=== PATIENT | female | born 1985 | race Caucasian/White ===

== ENCOUNTER 2020-01-18 08:23 | Emergency (ER) | payer OTHER, SELFPAY ==
[2020-01-18 08:36] VITALS: BP 103/67; PULSE 87; RESP 16; TEMP 36.6; O2SAT 99
--- NOTE | 2020-01-18 08:45 | ED.DENTAL ---
HPI - Dental/Oral General Chief complaint: Dental/Oral Stated complaint: left side of face swollen Time Seen by Provider: 01/18/20 08:45 Source: patient and RN notes reviewed History of Present Illness HPI Narrative: Patient is a 34-year-old female who presents the urgent care with complaints of a swollen left cheek. Patient states that she felt a little tightness last night and woke up with the extreme swelling this morning. Patient states that she has taken Tylenol and ibuprofen and also used an ice pack without much relief. Currently denies of any dental pain but does have a broken upper left tooth which she did recently. Denies of any fever, nausea, vomiting. No other acute complaints. Denies any recent injury or change in medications. No acute distress noted. Patient aware of the plan of care. Some parts of this dictation were generated by voice recognition software and may contain typographical and/or grammatical inaccuracies. Related Data Allergies Allergy/AdvReac Type Severity Reaction Status Date / Time No Known Allergies Allergy Verified 01/18/20 08:40 Review of Systems Review of Systems: Narrative: CONSTITUTIONAL: Denies fever, chills, or sweats. EYES: Denies visual changes, redness, or discharge. ENT: Denies rhinorrhea, congestion, sore throat, or otalgia. Reports of left-sided facial swelling CARDIOVASCULAR: Denies chest pain, palpitations, or edema. RESPIRATORY: Denies cough or dyspnea. GASTROINTESTINAL: Denies abdominal pain, nausea, vomiting, or diarrhea. GENITOURINARY: Denies dysuria or hematuria. SKIN: Denies rash or itching. MUSCULOSKELETAL: Denies back pain, joint pain, or myalgia. NEUROLOGIC: Denies headache, numbness, or weakness. All other systems reviewed are negative, except as documented in HPI. PMFSH Comments At the time of my signature, I reviewed and agree with the nursing past medical, surgical, social, and family history. There is no relevant family history pertinent to the patient complaint. Exam Narrative: Exam Narrative: GENERAL: This is a well-nourished, well-developed patient, in no apparent distress. HEAD: normocephalic, atraumatic. EYES: PERRL. Sclera clear/white. Vision is grossly intact. EARS: External ears normal NOSE: External nose normal with no obvious nasal discharge, nares without redness, no rhinorrhea. THROAT: Mucous membranes moist, posterior pharynx clear. NECK: Neck supple, non-tender without lymphadenopathy; mild to moderate left-sided facial swelling with warmth and density noted to the upper left cheek; normal parotid gland SKIN: warm, intact with no suspicious lesions or rash, good texture and turgor. NEURO: awake, alert, and oriented to person, place and time. There were no obvious focal neurologic abnormalities. EXTREMITIES: No clubbing, cyanosis, or edema. Course Vital Signs Vital signs: Vital Signs Temperature 98 F 01/18/20 08:36 Pulse Rate 87 01/18/20 08:36 Respiratory Rate 16 01/18/20 08:36 Blood Pressure 103/67 01/18/20 08:36 Pulse Oximetry 99 01/18/20 08:36 Temperature 98 F 01/18/20 08:36 Pulse Rate 87 01/18/20 08:36 Respiratory Rate 16 01/18/20 08:36 Blood Pressure 103/67 01/18/20 08:36 Pulse Oximetry 99 01/18/20 08:36 Reviewed MDM - Dental/Oral MDM Narrative Medical decision making narrative: Advised the patient to complete oral antibiotic regimen as prescribed. Make sure to eat and drink with the medication. Continue to use ice on and off intermittently for 20-minute intervals. Use Benadryl twice a day as needed. Complete steroid regimen as prescribed. If you develop any increase in symptoms associated with increased swelling, nausea, vomiting, fever, difficulty swallowing?go directly to the emergency room. Follow-up with your PCP within 2 to 5 days or for worsening symptoms or failure to improve. Differential Diagnosis Differential diagnosis: Likely gingival abscess, dental caries, toothache, dental abscess and
== END 2020-01-18 08:55 | disposition home or self-care (01) ==
PROVIDERS: Emergency Provider Nurse Practitioner Family
DX: R22.0 Localized swelling, mass and lump, head (principal)
CPT/HCPCS: 99213; G0463

== ENCOUNTER 2023-06-02 12:59 | Inpatient (IN) | payer OTHER, SELFPAY ==
[2023-06-02] VITALS (8 sets, daily range): BP systolic 120–139; BP diastolic 77–88; PULSE 75–89; RESP 14–22; TEMP 36.4–36.6; O2SAT 95–100; BMI 36.6
--- NOTE | ~2023-06-02 | CT_ITS ---
Clinical Indication: Metastatic disease CT Scan of the Chest, Abdomen, and Pelvis with Contrast: Technique: Contiguous sections were acquired throughout the chest, abdomen, and pelvis after intraven ous administration of 100 cc of Omnipaque 350. Dose reduction technique was used on this scan by rhoda youing automated exposure control and iterative reconstruction technique. The dose-length product (DL P) was 730.32 mGy-cm. Findings: There is no evidence of any significant mediastinal, hilar or axillary lymphadenopathy. The mediastin al soft tissues appear normal. Aberrant right subclavian artery incidentally noted. There is no evidence of pleural or pericardial effusion. The lungs are clear. No pulmonary nodules or infiltrates are noted. The liver, spleen, pancreas, gallbladder, adrenals and kidneys are within normal limits. No evidence of aortic aneurysm. No lymphadenopathy. No bowel obstruction or bowel wall thickening. There is no evidence to suggest acute appendicitis. Urinary bladder is unremarkable. No adnexal mass evident. No ascites. Impression: No significant abnormalities seen. No evidence for metastatic disease. Reviewed, dictated and finalized at [facility]. CH HISTORY TEACHER Impression: No significant abnormalities seen. No evidence for metastatic disease.
--- NOTE | ~2023-06-02 | XR_ITS ---
EXAMINATION: XR chest 1V portable DATE: 06/03/2023 17:28 INDICATION: Chest pain. TECHNIQUE: A single frontal view of the chest was obtained. COMPARISON: Chest CT 06/03/2023 FINDINGS: There is no pneumonia, pleural effusion, or pneumothorax. The heart size is normal. IMPRESSION: 1. No acute cardiopulmonary disease. Reviewed, dictated and finalized at location E. LE MECHANIC
--- NOTE | ~2023-06-02 | MR_ITS ---
EXAMINATION: MR brain/brain stem wo/w con DATE: 06/02/2023 18:55 INDICATION: Seizure. TECHNIQUE: Magnetic resonance imaging (MRI) of the brain and brainstem was performed without and with 20 mL MultiHance intravenous contrast. COMPARISON: Head CT 06/02/2023 FINDINGS: There is no acute ischemic infarct or intracranial hemorrhage. The hippocampi are normal an d symmetric. There is a focus of contrast enhancement in the right periventricular white matter with surrounding increased T2-weighted signal intensity. There is a focus of contrast enhancement in the p osterior left frontal lobe with surrounding increased T2-weighted signal intensity. There is a focus of contrast enhancement in the left cerebellum. There is a small focus of increased T2-weighted signa l intensity in the left parietal deep white matter. The ventricles are normal in size. There is mild mucosal thickening in the paranasal sinuses. The orbits are normal. There is a small left mastoid eff usion. IMPRESSION: 1. Three enhancing brain lesions. The differential diagnosis includes metastatic disease, infection, multiple sclerosis, and subacute infarcts. Reviewed, dictated and finalized at location E. ETING REPORTING ANALYST IMPRESSION: 1. Three enhancing brain lesions. The differential diagnosis includes metastati c disease, infection, multiple sclerosis, and subacute infarcts.
--- NOTE | ~2023-06-02 | CT_ITS ---
EXAMINATION: CT chest abdomen pelvis w con DATE: 06/03/2023 18:39 INDICATION: New onset abdominal pain. TECHNIQUE: Computed tomography (CT) of the chest, abdomen, and pelvis was performed with 100 mL Omnip aque 350 intravenous contrast. Automated exposure control and iterative reconstruction technique were employed. The dose-length product was 1648.85 mGy-cm. COMPARISON: CT at 1:30 PM FINDINGS: CHEST CT: There are a few nodules in the inferior lungs measuring up to 4 mm, likely benign. No pleural effusio n. There is an aberrant right subclavian artery. The heart size is normal. No pericardial effusion. T here is mild thoracic spondylosis. ABDOMEN/PELVIS CT: The liver, gallbladder, spleen, pancreas, adrenal glands, and right kidney are normal. There are cyst s in left kidney measuring up to 9 mm. There are no dilated loops of bowel. The appendix is normal. T here are no pathologically enlarged lymph nodes. There is no free intraperitoneal fluid. There is mil d lumbar spondylosis. IMPRESSION: 1. No etiology for the patient's symptoms. Reviewed, dictated and finalized at location E. ING MANAGER
--- NOTE | ~2023-06-02 | XR_ITS ---
EXAMINATION: XR lumbar puncture diagnostic DATE: 06/03/2023 14:40 INDICATION: Demyelinating disease versus meningitis/encephalitis TECHNIQUE: The procedure including the risks and benefits was discussed with the patient. Risks discu ssed included spinal headache, cerebrospinal fluid leak, bleeding, and infection. The patient underst ood the risks and agreed to proceed. A timeout was performed to verify the patient's name, date of , and procedure to be performed. The skin overlying the L3-L4 level was prepped and draped in usual sterile fashion. Subcutaneous 1% lidocaine was used for local anesthesia. A 5 inch 22 gauge s anum needle was advanced under fluoroscopic guidance. The needle was removed and the entry site was cleaned and dressed. There were no immediate complications. A total of 2 fluoroscopic image(s) and a single crosstable radiograph were obtained. The amount of fluoroscopy time used during this procedur e was 0.8 minutes. Were no immediate complications and the patient was returned to the floor in uncha nged condition. Total DAP was 16.631 mGycm^2 FINDINGS: Real-time fluoroscopy demonstrates the needle at the L4 level. Opening pressure was 26 cm w ater. (Normal range is variably defined as 6-20 cm water and up to 25 cm water in obese patients. Pre ssure >25 cm water is one of the modified Dandy criteria for idiopathic intracranial hypertension). 15 mL of clear, colorless fluid was collected in 4 tubes. IMPRESSION: 1. Successful fluoro-guided lumbar puncture with mildly elevated opening pressure of 26 cm water. Reviewed, dictated and finalized at location A. NER INTERN IMPRESSION: 1. Successful fluoro-guided lumbar puncture with mildly elevated opening pressu re of 26 cm water.
--- NOTE | ~2023-06-02 | MR_ITS ---
EXAMINATION: MR lumbar spine wo/w con DATE: 06/05/2023 12:01 INDICATION: Brain lesions. TECHNIQUE: Magnetic resonance imaging (MRI) of the lumbar spine was performed without and with 18 mL MultiHance intravenous contrast. COMPARISON: None FINDINGS: There is 6 degrees levocurvature of lumbar spine. Vertebral body heights and intervertebral disc heights are normal. The distal spinal cord signal intensity is normal. The conus medullaris is at T12-L1. There is a 12 mm cyst in left kidney. The following disc levels are specifically discussed : L1-L2: The disc does not extend beyond the endplate margin. There is mild bilateral facet joint osteo arthritis. There is no neural foraminal stenosis. There is no central canal stenosis. L2-L3: There is a left foraminal protrusion. There is mild bilateral facet joint osteoarthritis. Ther e is mild left neural foraminal stenosis. There is no central canal stenosis. L3-L4: The disc is mildly bulging. There is mild bilateral facet joint osteoarthritis. There is mild bilateral neural foraminal stenosis. There is no central canal stenosis. L4-L5: The disc does not extend beyond the endplate margin. There is mild bilateral facet joint osteo arthritis. There is no neural foraminal stenosis. There is no central canal stenosis. L5-S1: The disc does not extend beyond the endplate margin. There is moderate right and mild left fac et joint osteoarthritis. There is no neural foraminal stenosis. There is no central canal stenosis. IMPRESSION: 1. Mild lumbar spondylosis. Reviewed, dictated and finalized at location E. IMPRESSION: 1. Mild lumbar spondylosis.
--- NOTE | ~2023-06-02 | CT_ITS ---
EXAMINATION: CT brain wo con INDICATION: Seizure COMPARISON: None TECHNIQUE: Standard unenhanced head CT. The dose-length product (DLP) was 681.00 mGy-cm. The mA was a djusted according to patient size. Iterative reconstruction technique was employed. FINDINGS: No intracranial hemorrhage, acute infarction, or abnormal mass lesion. The ventricles are n ormal. No abnormal mass effect or midline shift. The pereira-white matter differentiation is normal. The basal cisterns are patent. The orbits are normal. The paranasal sinuses, mastoids and calvarium are normal. IMPRESSION: 1. No acute intracranial abnormality. Reviewed, dictated and finalized at location L. R AND OPAQUER
--- NOTE | ~2023-06-02 | CT_ITS ---
EXAMINATION: CTA brain carotid DATE: 06/03/2023 18:39 INDICATION: Brain lesions. Vasculitis. TECHNIQUE: Computed tomographic angiography (CTA) of the head was performed without and with 100 mL O mnipaque-350 intravenous contrast. CTA of the neck was performed with intravenous contrast. Automated exposure control and iterative reconstruction technique were employed. The dose-length product was 1 532.37 mGy-cm. Maximum intensity projection and volume rendered 3D-reconstructions were created by hema mckeon technologist on a separate workstation. COMPARISON: Brain MRI 06/02/2023 FINDINGS: HEAD CTA: There is no intracranial hemorrhage, acute infarction, or abnormal intracranial mass lesion . The ventricles are normal in size. The orbits are normal. There is mild mucosal thickening left max illary sinus. There is a trace left mastoid effusion. Extensive dental disease is noted. The vertebra l arteries are codominant. There is no significant stenosis of basilar artery or the posterior cerebr al arteries. The posterior communicating arteries are normal. There is no significant stenosis of int racranial internal carotid arteries or anterior or middle cerebral arteries. Anterior communicating a rtery is normal. There is no aneurysm. NECK CTA: There are no pathologically enlarged lymph nodes. There is an aberrant right subclavian art liv. There is no significant stenosis of the vertebral arteries. There is no visible plaque in the pa ranasal internal carotid arteries. There is 0% stenosis of the proximal right internal carotid arter y relative to normal distal artery lumen diameter (NASCET criteria). There is 0% stenosis of the prox imal left internal carotid artery relative to normal distal artery lumen diameter. There is mild cerv ical spondylosis. IMPRESSION: 1. Normal brain by CT. The lesions seen by MRI are not visible. 2. No aneurysm or significant intracranial arterial stenosis. 3. 0% stenosis of the proximal internal carotid arteries relative to normal distal artery lumen diame ters (NASCET criteria). 4. Extensive dental disease. Reviewed, dictated and finalized at location E. HEAD SALVAGE IMPRESSION: 1. Normal brain by CT. The lesions seen by MRI are not visible. 2. No aneurysm or significant intracranial arterial stenosis. 3. 0% stenosis of the proximal internal carotid arteries relative to normal dis caryn artery lumen diameters (NASCET criteria). 4. Extensive dental disease.
--- NOTE | ~2023-06-02 | MR_ITS ---
EXAMINATION: MR thoracic spine wo/w con DATE: 06/05/2023 12:01 INDICATION: Brain lesions. Seizure. TECHNIQUE: Magnetic resonance imaging (MRI) of the thoracic spine was performed without and with 18 m L MultiHance intravenous contrast. COMPARISON: None FINDINGS: Bone alignment is normal. Vertebral body heights and intervertebral disc heights are normal . There is multilevel mild to moderate facet joint osteoarthritis. On the right, there is mild neural foraminal stenosis at T7-T8 and T8-T9. On the left, there is mild neural foraminal stenosis at T4-T5 . There are lesions of increased T2-weighted signal intensity in the spinal cord at T2 and at T6-T7. The lesions cannot be evaluated for contrast enhancement due to artifacts on the postcontrast images. IMPRESSION: 1. Spinal cord lesions. The differential diagnosis includes multiple sclerosis and infection such as viral myelitis. Reviewed, dictated and finalized at location E.
--- NOTE | ~2023-06-02 | MR_ITS ---
EXAMINATION: MR cervical spine wo/w con DATE: 06/05/2023 12:00 INDICATION: Brain lesions. Seizures. TECHNIQUE: Magnetic resonance imaging (MRI) of the cervical spine was performed without and with 18 m L MultiHance intravenous contrast. COMPARISON: None FINDINGS: Bone alignment is normal. Vertebral body heights and intervertebral disc heights are normal . There are ill-defined areas of increased T2-weighted signal intensity in the spinal cord with some areas of faint contrast enhancement. The following disc levels are specifically discussed: C2-C3: The disc does not extend beyond the endplate margin. There is no uncovertebral joint osteoarth ritis. There is mild bilateral facet joint osteoarthritis. There is no neural foraminal stenosis. The re is no central canal stenosis. C3-C4: There is a right central protrusion. There is no uncovertebral joint osteoarthritis. There is mild bilateral facet joint osteoarthritis. There is no neural foraminal stenosis. There is no central canal stenosis. C4-C5: The disc does not extend beyond the endplate margin. There is mild bilateral uncovertebral mehul nt osteoarthritis. There is mild bilateral facet joint osteoarthritis. There is no neural foraminal s tenosis. There is no central canal stenosis. C5-C6: There is a central protrusion. There is mild bilateral uncovertebral joint osteoarthritis. The re is no facet joint osteoarthritis. There is no neural foraminal stenosis. There is mild central can al stenosis. C6-C7: There is a central protrusion. There is mild bilateral uncovertebral joint osteoarthritis. The re is no facet joint osteoarthritis. There is no neural foraminal stenosis. There is no central canal stenosis. C7-T1: The disc does not extend beyond the endplate margin. There is no uncovertebral joint osteoarth ritis. There is severe bilateral facet joint osteoarthritis. There is mild bilateral neural foraminal stenosis. There is no central canal stenosis. IMPRESSION: 1. Ill-defined lesions of increased T2-weighted signal intensity in spinal cord with some areas of co ntrast enhancement. The differential diagnosis includes multiple sclerosis and infection such as zachary l myelitis. Reviewed, dictated and finalized at location E. IMPRESSION: 1. Ill-defined lesions of increased T2-weighted signal intensity in spinal cord with some areas of contrast enhancement. The differential diagnosis includes m ultiple sclerosis and infection such as viral myelitis.
--- NOTE | 2023-06-02 12:59 | ECG_ITS ---
Measurements Intervals [place] Rate: 81 P: 22 UT: 142 QRS: -17 QRSD: 114 T: 26 QT: 355 QTc: 414 Interpretive Statements SINUS RHYTHM LOW QRS VOLTAGE IN PRECORDIAL LEADS INCOMPLETE RIGHT BUNDLE BRANCH BLOCK MINIMAL Q WAVES- HIGH LATERAL LEADS BORDERLINE ECG NO PREVIOUS ECG AVAILABLE FOR COMPARISON Electronically Signed On 06-02-2023 13:13:23 CAP SIZER by Maciel Payne D.O.
[2023-06-02 13:11] LABS: Basophils Absolute Auto 0.1 K/mm3 (0.0-0.1); Basophils Percent Auto 0.6 % (0.2-1.2); Eosinophils Absolute Auto 0.2 K/mm3 (0-0.3); Eosinophils Percent Auto 2.2 % (0-4.4); Hematocrit 38.4 % (37.0-47.0); Hemoglobin 11.7 g/dL (12.0-15.0); Immature Granulocyte Absolute 0.02 K/mm3 (0.00-0.031); Immature Granulocyte Percent A 0.2 % (0-0.5); Lymphocytes Absolute Auto 2.45 K/mm3 (0.9-3.2); Lymphocytes Percent Auto 25.7 % (18.3-44.2); Mean Corpuscular HGB Conc 30.5 g/dl (32-36); Mean Corpuscular Hemoglobin 25.9 pg (26-34); Mean Corpuscular Volume 85.1 fl (80-100); Mean Platelet Volume 9.9 fl (7.4-10.4); Monocytes Absolute Auto 0.4 K/mm3 (0.1-0.6); Monocytes Percent Auto 4.1 % (2.6-8.5); Neutrophils Absolute Auto 6.4 K/mm3 (1.3-6.7); Neutrophils Percent Auto 67.2 % (45.5-73.1); Platelet Count Result 374 k/mm3 (150-375); Red Blood Count 4.51 M/mm3 (4.2-5.4); Red Cell Distribution Width 14.6 % (11.5-14.5); White Blood Count 9.6 K/mm3 (4.5-10.0)
[2023-06-02 13:23] LABS: Alanine Aminotransferase 20 U/L (6-35); Albumin Level 3.8 g/dL (3.5-5.1); Alkaline Phosphatase 57 U/L (38-126); Anion Gap 6 mmol/L (8-16); Aspartate Amino Transferase 24 U/L (14-36); Bilirubin,Total 0.3 mg/dL (0.2-1.3); Blood Urea Nitrogen 10 mg/dL (7-17); Calcium 8.1 mg/dL (8.4-10.2); Carbon Dioxide 24 mmol/L (22-30); Chloride 108 mmol/L (98-107); Estimated CRCL calculation 106 ml/min; Estimated Glomerular Filt Rate > 60; Glucose 99 mg/dL (65-110); Potassium 3.7 mmol/L (3.4-5.0); Sodium 138 mmol/L (137-145)
--- NOTE | 2023-06-02 14:16 | ED.SEIZURE ---
HPI - Seizure General Chief Complaint: Seizure Stated Complaint: SEIZURE Time Seen by Provider: 06/02/23 13:49 History of Present Illness HPI Narrative: Patient is a 38-year-old healthy female here with seizure-like activity. She states that prior to presentation she was at home and her witnessed her having generalized tonic clonic movements for approximately 2 minutes. They self resolved. She denies any bowel or bladder incontinence. She denies any tongue biting. She denies any trauma. She did have a postictal period and continues to feel a bit groggy. Of note she had 2 similar episodes last week. The 1st of which happened while she was in her vehicle parked. That episode she was alone, it was unwitnessed and she was unsure of what happened. She did bite her tongue with significantly and went to an urgent care which she told them that she fell and they prescribed her antibiotics and pain medication. She notes that she had a 2nd episode later on last week witnessed by her son who has seizures himself after being treated for glioblastoma. She had no bowel or bladder incontinence and that episode either. Prior to the last week and half she has no prior history of seizures. No recent changes in medications. She does note increased life stressors at this time as they were attempting to purchase a home and they are currently living in a hotel. Related Data Allergies Allergy/AdvReac Type Severity Reaction Status Date / Time No Known Allergies Allergy Verified 01/18/20 08:40 Review of Systems Review of Systems: All systems reviewed & are unremarkable except as noted in HPI and below Exam Narrative: GENERAL: Well-appearing, well-nourished, and in no acute distress. HEAD: Normocephalic, atraumatic. EYES: PERRLA and EOMI. ENT: Nares clear. Mucous membranes moist. Laceration to the left lateral tongue, approximately 1 cm in size, this appears to be older than RD in stage of routine healing, no bleeding appreciated. NECK: Supple. CHEST: Clear to auscultation. No respiratory distress. HEART: Regular rate and rhythm. Normal peripheral pulses. ABDOMEN: Soft, nontender, nondistended. EXTREMITIES: Normal range of motion. No edema. SKIN: Warm, dry, no rash. NEURO: No focal deficits. Alert and oriented x3. PSYCH: Normal mood and affect. Course Course Emergency Course: Chart review performed. Patient here from EMS after having a seizure. It is apparently witnessed by , stated lasted 2 minutes. Has reportedly had 2 seizures in the last week. Triage vitals within normal limits. Patient seen evaluated, nontoxic appearing. Resting comfortably in bed, appears to be close to her baseline with no focal neurological deficits. Concern for recurrent seizures. Will load with Keppra. We will do CT head as well as lab work. Lab work and imaging reviewed, CBC grossly unremarkable, electrolytes within normal limits. CT brain negative. Patient back to her baseline, updated on all results. I did speak with on-call Neurology Dr. Plunkett who recommends loading with Keppra, starting 500 mg b.i.d., admission for MRI and EEG. Spoke with Shavonne from hospitalist service who accepts patient for admission. Vital Signs Vital signs: Vital Signs Temperature 97.8 F 06/02/23 12:53 Pulse Rate 89 06/02/23 12:53 Respiratory Rate 22 H 06/02/23 12:53 Blood Pressure 139/87 06/02/23 12:53 Pulse Oximetry 97 06/02/23 12:53 Oxygen Delivery Room Air 06/02/23 12:53 Temperature 97.8 F 06/02/23 12:53 Pulse Rate 79 06/02/23 15:33 Respiratory Rate 14 06/02/23 15:33 Blood Pressure 120/77 06/02/23 15:33 Pulse Oximetry 98 06/02/23 15:33 Oxygen Delivery Room Air 06/02/23 13:00 MDM - Seizure Lab Data 06/02/23 13:05 06/02/23 13:05 Labs: Lab Results 06/02/23 Range/Units 13:05 WBC 9.6 (4.5-10.0) K/mm3 RBC 4.51 (4.2-5.4) M/mm3 Hgb 11.7 L (12.0-15.0) g/dL
[2023-06-02] MEDS: levETIRAcetam 1000MG/NACL100ML 1,000 MG/100 ML BAG 400 MG IVPB (14:52)
[2023-06-02] MEDS: ONDANSETRON INJ 4 MG/2 ML VIAL IV PUSH (15:57)
--- NOTE | 2023-06-02 17:22 | PC.NURSE ---
Report called to HANK Cuenca, informed her that pt would be going to MRI prior to arrival to floor.
--- NOTE | 2023-06-02 17:50 | PC.NURSE ---
This patient, Nichole Greene, was admitted to 3 Med Surg Room 327-01 at 1750. Patient/family oriented to hospital policies and general routines including ID bracelet, bed and alarms, visiting hours, pain management, procedures, bathroom and other care routines, personal items, smoking policy, room service/diet, and visiting hours. Information on how to activate the Rapid Response Team has been discussed. Patient/Family are encouraged to report perceived risks to care and to ask questions if they do not understand what they are told or what they should do.
--- NOTE | 2023-06-02 18:00 | PC.NURSE ---
To Radiology per wheelchair 1800.
[2023-06-02 18:47] LABS: SPREG INTERNAL CONTROL Positive; Serum Qual hCG Negative
--- NOTE | 2023-06-02 18:52 | PC.NURSE ---
Return from Radiology per wheelchair at 185
--- NOTE | 2023-06-02 18:53 | PM.IMHP ---
H&P: HPI History of Present Illness Date/Time: 06/02/23 20:30 Chief Complaint: Witnessed seizure. 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 The patient provides the following history. Last Tuesday she went for a drive and started to feel strange. She pulled over into a parking lot and called her who reports that she had stuttering speech. The next thing she remembers is coming to with pain on the left side of her tongue where it appeared she had bit her tongue. She was seen at a local urgent care and was prescribed antibiotics in case the area got infected; it did not need suturing. The following night her son heard her make a strange noise and he found her with full body shakes lasting a couple of minutes. She was confused for a period of time thereafter but denies tongue bite and incontinence. Last night she slept poorly and today she lay down at about 11:00 to take a nap. While she was asleep she suddenly sat up, made a strange yelping noise, and proceeded to have whole-body shakes once again according to her . She has no known history of seizures. She is not on any medication at home routinely though she is currently on amoxicillin and is taking ibuprofen for her tongue laceration. She denies supplement use. She smokes marijuana but denies other drug use. She drinks alcohol very rarely. In the ED: vital signs were stable on arrival to the ED. Brain CT did not show any acute findings. Labs were pretty unremarkable. She was given a dose of levetiracetam and was admitted to the floor for further observation and neurology consultation. Brain MRI done this afternoon showed 3 enhancing brain lesions with a differential diagnosis to include metastatic disease, infection, multiple sclerosis, and subacute infarctions. With further questioning she denies recent illnesses and specifically recent tooth infections or upper respiratory symptoms. She has lost some weight unintentionally but not significant amounts. She has not noticed any breast masses, swollen lymph nodes, or blood in the stool. She is adopted and does not know her biological family history but reports that her 11-year-old son had a glioblastoma. She has occasional, random paresthesias and sensation changes in random parts of her body but that is rare and not long lasting. Endorses mild blurry vision when she came to after her seizure activity today but no double vision. She denies vertigo, facial droop, difficulty speaking and swallowing, and focal weakness. Over the last month or so she has had several episodes of day where she has racing heart and feelings of irregular heartbeat. Her smart watch has shown that her heart rate has gotten over 180 beats per minute. These episodes are self-limiting typically last a few minutes before resolving. She has not had syncope or near syncope and denies chest pain pleuritic pain. She has occasional paroxysmal nocturnal dyspnea reports that she has been snoring recently. Review of Systems Review of Systems: Twelve systems were reviewed and are negative except for as per HPI. [facility] Past Medical History Medical History (Updated 06/02/23 @ 20:40 by Shavonne Xie PA-C) Sykes palsy Surgical History Surgical History (Updated 06/02/23 @ 20:37 by Shavonne Xie PA-C) History of section X4 History of tubal ligation Family History Family History Father Mother Hepatitis C Other Esophageal cancer Son Glioblastoma Social History Social History (Updated 06/02/23 @ 20:38 by Shavonne Xie PA-C) Social History: Surrogate medical decision maker: Jonah Castillo, spouse. Code status: Full code. Smoking status: Never smoker Alcohol use details: Very rare alcohol use Substance use: current Substance
--- NOTE | 2023-06-02 19:07 | PC.NURSE ---
On 06/02/23, the HAND FRAME SURGICAL ELASTIC KNITTER, Joellen Webb, provided care and completed [facility] [employer] documentation on this patient. I have reviewed the HAND FRAME SURGICAL ELASTIC KNITTER's documentation and agree with the findings.
[2023-06-02] MEDS: levETIRAcetam 500 MG TABLET PO (20:15)
[2023-06-02] MEDS: LIDOCAINE HCL 2% VISC SOLN 15 ML UDC PO (20:36)
[2023-06-02] MEDS: AMOXICILLIN/CLAVULANATE K 875-125 MG TAB 1 TABLET PO (21:17)
[2023-06-03] VITALS (11 sets, daily range): BP systolic 104–123; BP diastolic 50–98; PULSE 70–90; RESP 12–20; TEMP 36.2–36.7; O2SAT 97–100
--- NOTE | 2023-06-03 | ECHO_ITS ---
Patient Info Name: Nichole Greene Age: 38 years : 1985 Gender: Female Ht: 62 in Wt: 200 lbs BSA: 2.04 m2 HR: 77 bpm BP: 106 / 64 mmHg Heart Rhythm: Sinus Rhythm Technical Quality: Good Exam Date: 06/03/2023 11:34 AM Exam Location: Echo Lab Patient Status: Outpatient Admit Date: 06/02/2023 Staff Ordering Physician: Shavonne Xie PA-C Communications Equipment Supervisor: Rey Alanis RDCS Attending Provider: Denisha Hatfield MD Referring Physician: Rojas TRAVIS; Exam Type: CA echo doppler w bubble study Study Info Indications - palpatation, possible CVA Complete two-dimensional, color flow and Doppler transthoracic echocardiogram is performed with agitated saline. Contrast/Agitated Saline Contrast/Ag. Saline: Definity Amount: 30.00 ml Summary 1. Normal 2D/Doppler echocardiogram other than trivial tricuspid and pulmonic regurgitation. 2. Agitated saline contrast injection is negative for shunting. Left Ventricle Left ventricular chamber dimension is normal. Left ventricular systolic function is normal, estimated at 60-65%. The left ventricular diastolic function is normal. Right Ventricle Right ventricular chamber dimension is normal. Left Atria Left atrial chamber dimension is normal. Right Atria Right atrial chamber dimension is normal. Atrial Septum Intact interatrial septum visualized by agitated saline imaging. Aortic Valve The aortic valve is normal. Pulmonic Valve The pulmonic valve is normal. There is trace pulmonic regurgitation. Mitral Valve The mitral valve has normal leaflets. Tricuspid Valve The tricuspid valve leaflets are normal. There is trace tricuspid valve regurgitation. Pericardium/Pleural The pericardium appears normal. Aorta The aortic root size at the sinus of Valsalva is normal. Left Ventricular Outflow Tract Name Value Normal LVOT 2D LVOT Diameter 2.0 cm LVOT Doppler LVOT Peak Gradient 5 mmHg LVOT Mean Gradient 2 mmHg LVOT VTI 24 cm LVOT VTI/AV VTI Ratio 0.9 LVOT Stroke Volume 79 ml LVOT CO 5.3 l/min LVOT CI 2.6 l/min/m2 Pulmonic Valve Name Value Normal RVOT Doppler RVOT Peak Gradient 2 mmHg PV Doppler PV Peak Gradient 3 mmHg Mitral Valve Name Value Normal MV Doppler MV Decel [place] 473 cm/s2 MV PHT 62 ms
--- NOTE | 2023-06-03 04:33 | PCRCNOTE ---
Patient was sleeping when RT addressed patient about apnea link order. Patient denied, stating she was super worn out and just wanted to go back to sleep. Patient said possibly tomorrow ([place] 06/02).
--- NOTE | 2023-06-03 08:43 | P.PNIM_ITS ---
Progress Note: A&P Assessment and Plan (1) Seizure-like activity: Code(s): R56.9 - Unspecified convulsions Status: Acute Assessment and Plan: * seizure-like activity, described as tonic clonic * Brain CT was normal but her brain MRI did show 3 enhancing lesions with a differential diagnosis to include malignancy, infection, multiple sclerosis, or infarct. * MS is also possibility given intermittent paresthesias in sensation changes * EEG ordered for this a.m * Defer further workup to Neurology whose input is greatly appreciated. 06/02 * patient expressed potentially 3 seizures total * neurology at bedside for exam * eeg complete- neurology noted the results as normal routine EEG recorded in awake and drowsy states. There are no electrographic seizures identified, nor are there any epileptiform discharges. * neurology will add MRI cervical thoracic and lumbar spine, lumbar puncture, CTA brain carotid, surface echo with bubble study, lipid panel and hemoglobin A1c * continue Keppra 500mg b.i.d. (2) Abnormal brain MRI: Code(s): R90.89 - Other abnormal findings on diagnostic imaging of central nervous system Status: Acute Assessment and Plan: * Brain CT was normal but her brain MRI did show 3 enhancing lesions with a differential diagnosis to include malignancy, infection, multiple sclerosis, or infarct. * Defer further workup to Neurology whose input is greatly appreciated. 06/02 * neurology will add MRI cervical thoracic and lumbar spine, lumbar puncture, CTA brain carotid, surface echo with bubble study, lipid panel and hemoglobin A1c * oncology consulted for potential primary malignancy (3) Palpitations: Code(s): R00.2 - Palpitations Status: Acute Assessment and Plan: * describes palpitations- noted that smart watch stated HR greater than 180 * possible proximal atrial fibrillation * echo ordered 06/02 * echo completed and results noted Left ventricular systolic function is normal, estimated at 60-65%. The left ventricular diastolic function is normal. * tele monitor at time of assessment was normal sinus rhythm (4) Suspected sleep apnea: Code(s): R29.818 - Other symptoms and signs involving the nervous system Status: Acute Assessment and Plan: * reports that she has been snoring and she endorses occasional paroxysmal nocturnal dyspnea thus will check an apnea link (5) Abdominal pain: Code(s): R10.9 - Unspecified abdominal pain Status: Acute Assessment and Plan: * patient expressed abdominal pain- initially thought to be chest pain- EKG, chest x-ray, troponin was ordered at that time * continue assessment noted upper abdominal pain- which occurred after eating dinner * CT of the chest abdomen pelvis ordered Plan The patient presented to the emergency department for evaluation after a seizure as detailed in HPI. Labs, imaging, EKG, and all reports were personally reviewed. She has no prior history of such. Brain CT was normal but her brain MRI did show 3 enhancing lesions with a differential diagnosis to include malignancy, infection, multiple sclerosis, or infarct. Malignancy and infection seem less likely. I suppose stroke is a possibility if she has paroxysmal atrial fibrillation; she reports several episodes of self-limiting palpitations over the past month. Echocardiogram has been ordered for evaluation. MS is also possibility given intermittent paresthesias in sensation changes though that seems rare. Defer further workup to Neurology whose input is greatly appreciated. reports that sh
--- NOTE | 2023-06-03 08:43 | PM.IMPN ---
Progress Note: A&P Assessment and Plan (1) Seizure-like activity: Code(s): R56.9 - Unspecified convulsions Status: Acute Assessment and Plan: seizure-like activity, described as tonic clonic Brain CT was normal but her brain MRI did show 3 enhancing lesions with a differential diagnosis to include malignancy, infection, multiple sclerosis, or infarct. MS is also possibility given intermittent paresthesias in sensation changes EEG ordered for this a.m Defer further workup to Neurology whose input is greatly appreciated. 06/02 patient expressed potentially 3 seizures total neurology at bedside for exam eeg complete- neurology noted the results as normal routine EEG recorded in awake and drowsy states. There are no electrographic seizures identified, nor are there any epileptiform discharges. neurology will add MRI cervical thoracic and lumbar spine, lumbar puncture, CTA brain carotid, surface echo with bubble study, lipid panel and hemoglobin A1c continue Keppra 500mg b.i.d. (2) Abnormal brain MRI: Code(s): R90.89 - Other abnormal findings on diagnostic imaging of central nervous system Status: Acute Assessment and Plan: Brain CT was normal but her brain MRI did show 3 enhancing lesions with a differential diagnosis to include malignancy, infection, multiple sclerosis, or infarct. Defer further workup to Neurology whose input is greatly appreciated. 06/02 neurology will add MRI cervical thoracic and lumbar spine, lumbar puncture, CTA brain carotid, surface echo with bubble study, lipid panel and hemoglobin A1c oncology consulted for potential primary malignancy (3) Palpitations: Code(s): R00.2 - Palpitations Status: Acute Assessment and Plan: describes palpitations- noted that smart watch stated HR greater than 180 possible proximal atrial fibrillation echo ordered 06/02 echo completed and results noted Left ventricular systolic function is normal, estimated at 60-65%. The left ventricular diastolic function is normal. tele monitor at time of assessment was normal sinus rhythm (4) Suspected sleep apnea: Code(s): R29.818 - Other symptoms and signs involving the nervous system Status: Acute Assessment and Plan: reports that she has been snoring and she endorses occasional paroxysmal nocturnal dyspnea thus will check an apnea link (5) Abdominal pain: Code(s): R10.9 - Unspecified abdominal pain Status: Acute Assessment and Plan: patient expressed abdominal pain- initially thought to be chest pain- EKG, chest x-ray, troponin was ordered at that time continue assessment noted upper abdominal pain- which occurred after eating dinner CT of the chest abdomen pelvis ordered Plan The patient presented to the emergency department for evaluation after a seizure as detailed in HPI. Labs, imaging, EKG, and all reports were personally reviewed. She has no prior history of such. Brain CT was normal but her brain MRI did show 3 enhancing lesions with a differential diagnosis to include malignancy, infection, multiple sclerosis, or infarct. Malignancy and infection seem less likely. I suppose stroke is a possibility if she has paroxysmal atrial fibrillation; she reports several episodes of self-limiting palpitations over the past month. Echocardiogram has been ordered for evaluation. MS is also possibility given intermittent paresthesias in sensation changes though that seems rare. Defer further workup to Neurology whose input is greatly appreciated. reports that she has been snoring and she endorses occasional paroxysmal nocturnal dyspnea thus will check an apnea link. EEG ordered for a.m.. Findings and treatment plan were discussed with the patient. Questions were solicited and answered to satisfaction. The patient's medical management will be taken over by the hospitalist team in a.m. Time Spent With Patient Time w
[2023-06-03] MEDS: levETIRAcetam 500 MG TABLET PO ×2 (08:55→20:47)
[2023-06-03] MEDS: AMOXICILLIN/CLAVULANATE K 875-125 MG TAB 1 TABLET PO (08:55)
[2023-06-03] MEDS: ACETAMINOPHEN 325 MG TABLET 650 MG PO ×2 (08:57→19:03)
--- NOTE | 2023-06-03 09:05 | WPDNEURCNPN ---
Assessment and Plan Assessment and plan (1) Seizure-like activity: Code(s): R56.9 - Unspecified convulsions Status: Acute (2) Abnormal brain MRI: Code(s): R90.89 - Other abnormal findings on diagnostic imaging of central nervous system Status: Acute Plan Patient is a previously healthy 38 year old female presenting due to new onset seizures in the setting of new enhancing brain lesions. Differential diagnosis is broad at this point. I think unlikely to be stroke given contrast enhancement, but considering vasculitis. Less likely to be demyelinating disease given presentation of seizure, but that is also on the differential, as well as infection due to meningitis/encephalitis and metastatic disease. - Obtain MRI of the cervical, thoracic, and lumbar spine with and without contrast - Patient will need to be worked up for primary malignancy given possibility of metastatic disease -- consult Oncology - Obtain LP with CSF studies -- will need to check for infectious causes -- especially bacterial, fungal, TB, HSV; also obtain cytology, MS panel, and CSF DENISE - Obtain CTA brain/carotid, surface echo with bubble study, check LDL and HgbA1c - Continue Keppra 500mg BID - Patient should not drive or operative heavy machinery until she is seizure free for at least six months Consult date: 06/03/23 Reason for consult: New onset seizure HPI: Nichole Greene is a 38 year old female with no significant past medical history presenting with new onset seizure. Patient has had three seizures in the past week. Last Tuesday, while driving she started to feel strange. She pulled over into the parking lot and called her who reported that she had stuttering speech. The next thing she remembers is waking up with pain on her tongue as it appeared that she had bit her tongue. The following night, her son herd her make a strange noise and found her convulsing, lasted a few minutes. She was confused afterwards. Yesterday she woke up from sleep, sat up, made a strange yelping noise, and then had full body convulsions again. She has no prior history of seizures. Patient is adopted so she does not know her family history. Her son however had a brain tumor. CT head in the ER did not show any acute findings. She was started on Keppra 500mg BID and admitted for further evaluation. MRI brain was done yesterday afternoon which showed 3 enhancing lesions -- read as possible metastatic disease, infection, MS, and subacute infarctions. Patient denies any recent illnesses. She has lost some weight unintentionally but not significant. Labs are unrevealing. No elevation in WBC or electrolyte derangement. She denies any fevers but reports she felt 'warm' prior to her initial seizure. She denies any unilateral vision loss or focal numbness/weakness in the past. She has burning pain in both hands that wake her from sleep which started a few months ago. Review of Systems Review of Systems: All systems reviewed & are unremarkable except as noted in HPI and below PMFSH Past Medical History Medical History Sykes palsy Surgical History Surgical History (Updated 06/02/23 @ 20:37 by Shavonne Xie PA-C) History of section X4 History of tubal ligation Family History Family History Father Mother Hepatitis C Other Esophageal cancer Son Glioblastoma Social History Social History (Updated 06/02/23 @ 20:38 by Shavonne Xie PA-C) Social History: Surrogate medical decision maker: Jonah Castillo, spouse. Code status: Full code. Smoking status: Never smoker Alcohol intake: never Alcohol use details: Very rare alcohol use Substance use: current Substance use type: marijuana Other substance usage details: smokes 2-3 blunts/day Last use: 06/02/2023 Do You Feel Safe in your Home?: Yes Lack of Transportation:
[2023-06-03 09:18] LABS: Hematocrit 37.2 % (37.0-47.0); Hemoglobin 11.2 g/dL (12.0-15.0); Mean Corpuscular HGB Conc 30.1 g/dl (32-36); Mean Corpuscular Hemoglobin 26.1 pg (26-34); Mean Corpuscular Volume 86.7 fl (80-100); Platelet Count Result 344 k/mm3 (150-375); Red Blood Count 4.29 M/mm3 (4.2-5.4); Red Cell Distribution Width 14.8 % (11.5-14.5); White Blood Count 8.9 K/mm3 (4.5-10.0)
[2023-06-03 09:33] LABS: Alanine Aminotransferase 19 U/L (6-35); Albumin Level 3.4 g/dL (3.5-5.1); Alkaline Phosphatase 56 U/L (38-126); Anion Gap 1 mmol/L (8-16); Aspartate Amino Transferase 22 U/L (14-36); Bilirubin,Total 0.2 mg/dL (0.2-1.3); Blood Urea Nitrogen 11 mg/dL (7-17); Calcium 8.3 mg/dL (8.4-10.2); Carbon Dioxide 28 mmol/L (22-30); Chloride 109 mmol/L (98-107); Estimated CRCL calculation 99 ml/min; Estimated Glomerular Filt Rate > 60; Glucose 99 mg/dL (65-110); Sodium 138 mmol/L (137-145)
--- NOTE | 2023-06-03 11:42 | WPDNEUROLOGY ---
Neurology EEG Report General Information Date of Study: 06/03/23 TEST Routine EEG DIAGNOSIS New-onset seizure CONDITION OF RECORDING Awake and drowsy. EKG artifact noted throughout recording. EEG NUMBER [id number] CLINICAL HISTORY Patient has had three seizures in the past week. Appear to be focal onset with secondary generalization. MRI brain showed 3 enhancing lesions -- R periventricular, L posterior frontal, and L cerebellum. EEG DESCRIPTION During the awake state with eyes closed the background consists of 9-10 Hz posterior dominant rhythm which attenuates appropriately with eye opening. The recording is continuous. There is a well developed anterior-posterior gradient. No significant asymmetries of background activities are noted. With drowsiness there is waxing and waning of the dominant rhythm with eventual replacement by a mixture of beta, alpha, and theta activity. Patient does not enter stage II sleep. There are no epileptiform discharges or seizures during this recording. Hyperventilation and photic stimulation were not performed. IMPRESSION This is a normal routine EEG recorded in awake and drowsy states. There are no electrographic seizures identified, nor are there any epileptiform discharges. Please note that a normal EEG cannot exclude a seizure disorder. Clinical correlation is recommended.
[2023-06-03 13:19] LABS: Prothrombin Time 13.1 Seconds (11.1-14.7)
[2023-06-03 13:21] LABS: Partial Thromboplastin Time 25.1 SECONDS (22.3-36.8)
--- NOTE | 2023-06-03 15:01 | PDONCCN ---
HPI - Date of Consult Date/Time: 06/03/23 15:01 Requesting Physician: Denisha Hatfield MD Primary Care Provider: UNKNOWN,DOCTOR - Consult Narrative Reason for consult: Brain Lesions Narrative: Nichole Greene is a 38 year old female with a past medical history of [place] Palsy that reports to the hospital for three seizures in the past week. Last Tuesday, she started to feel strange and pulled over while driving. She woke up and she bit her tongue. while driving she started to feel strange. The 2nd seizure happened when she was sleeping. The 3rd seizure happened shortly after she laid down. She believes it is tonic like seizures as her body is convulsing. She wakes up confused and unable to speak. She explains it as she is under water or in a tunnel. She has no prior history of seizures. Patient is adopted so she does not know her family history. Her son however has a history of glioblastoma. CT head in the ER did not show any acute findings. She was started on Keppra 500mg BID and admitted for further evaluation. MRI brain was done yesterday afternoon which showed 3 enhancing lesions -- read as possible metastatic disease, infection, MS, and subacute infarctions. EEG completed. Patient denies any recent illnesses. She has lost some about 50lb unintentionally in the last 3-4 months. She reports heavy menstrual bleeding that last 7 days. She reports night sweats, fevers up to 102F 3x, chills, a poor appetite, and alot of fatigue. Labs are unrevealing. Review of Systems - Review of Systems All systems reviewed & are unremarkable except as noted in HPI and bel - Neurologic Reports [facility] Medical History: Medical History (Last Reviewed 06/03/23 @ 14:42 by Billie Delong MD) [place] palsy Surgical History: Surgical History (Last Updated 06/02/23 @ 20:37 by Shavonne Xie PA-C) History of section X4 History of tubal ligation Family History: Family History (Last Reviewed 06/03/23 @ 14:42 by Billie Delong MD) Father Mother Hepatitis C Other Esophageal cancer Son Glioblastoma - Social History Social History: Social History (Last Updated 06/02/23 @ 20:38 by Shavonne Xie PA-C) Alcohol Use: Alcohol intake: never Alcohol use details: Very rare alcohol use Substance Use: Substance use: current Substance use type: marijuana Other substance usage details: smokes 2-3 blunts/day Last use: 06/02/2023 Others: Spiritual care concerns: No Smoking Status: Smoking status: Never smoker Social Determinants of Health: Do You Feel Safe in your Home?: Yes Has the Lack of Transportation Kept You From Medical Appointments or From Getting Medications?: No Within the Past 12 Months, Were You Worried Whether Your Food Would Run Out Before You Got Money to Buy More?: Never True What is Your Housing Situation Today?: I Have Housing Are You Worried That in the Next 2 Months, You May Not Have Your Own Housing to Live In?: No Do You Have Trouble Paying Your Heating Or Electricity Bill?: No Do You Have Trouble Paying For Medicines?: No Are You Currently Unemployed and Looking for Work?: No Highest Level of Education Completed: High School Diploma/GED Do You Have Trouble With Childcare or the Care of a Family Member?: No Exam - General Pt is laying in bed in no acute distress - Vital Signs Vital Signs - 24 hr 06/02/23 15:33 06/02/23 15:34 06/02/23 18:40 Temperature 36.6 C Pulse Rate 79 78 85 Respiratory Rate 14 20 20 Blood Pressure 120/77 134/88 Pulse Oximetry 98 99 95 Oxygen Delivery 06/02/23 20:00 06/02/23 21:13 06/02/23 20:00 Temperature 36.4 C L Pulse Rate 75 77 Respiratory Rate 21 H Blood Pressure 131/88 Pulse Oximetry 100 Oxygen Delivery Room Air 06/03/23 00:00 06/03/23 04:00 06/03/23 05:24 Temperature 36.2 C L Pulse Rate 81 79 77 Respiratory
[2023-06-03 15:34] LABS: CRP < 0.5 mg/dL (<1.0)
[2023-06-03 15:56] LABS: Appearance CSF Clear (Clear); CSF source CSF; Color CSF Colorless (Colorless); Glucose CSF 54 mg/dL (40-70); Nucleated Cell CSF 21 /uL (0-5); Red Blood Cell CSF 13 (0-2); Total Protein CSF 72 mg/dL (12-60)
[2023-06-03 15:57] LABS: Lymphocytes CSF 96 % (40-80); Monocytes CSF 4 % (15-45); Neutrophils CSF 0 % (0-6)
[2023-06-03 17:02] LABS: Erythrocyte Sedimentation Rate 16 mm/hr (0-20)
[2023-06-03] MEDS: SODIUM CHLORIDE 0.9% IV 1,000 ML 999 ML IV CONT (17:13)
--- NOTE | 2023-06-03 17:16 | ECG_ITS ---
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
[2023-06-03] MEDS: MORPHINE SULFATE (*CRX) 2 MG/ML INJ IV PUSH (17:35)
[2023-06-03 18:37] LABS: Basophils Absolute Auto 0.1 K/mm3 (0.0-0.1); Basophils Percent Auto 0.6 % (0.2-1.2); Eosinophils Absolute Auto 0.2 K/mm3 (0-0.3); Eosinophils Percent Auto 2.4 % (0-4.4); Hematocrit 34.2 % (37.0-47.0); Hemoglobin 10.5 g/dL (12.0-15.0); Immature Granulocyte Absolute 0.03 K/mm3 (0.00-0.031); Immature Granulocyte Percent A 0.4 % (0-0.5); Lymphocytes Absolute Auto 2.53 K/mm3 (0.9-3.2); Lymphocytes Percent Auto 30.5 % (18.3-44.2); Mean Corpuscular HGB Conc 30.7 g/dl (32-36); Mean Corpuscular Hemoglobin 26.5 pg (26-34); Mean Corpuscular Volume 86.4 fl (80-100); Mean Platelet Volume 10.2 fl (7.4-10.4); Monocytes Absolute Auto 0.4 K/mm3 (0.1-0.6); Monocytes Percent Auto 4.3 % (2.6-8.5); Neutrophils Absolute Auto 5.1 K/mm3 (1.3-6.7); Neutrophils Percent Auto 61.8 % (45.5-73.1); Platelet Count Result 327 k/mm3 (150-375); Red Blood Count 3.96 M/mm3 (4.2-5.4); Red Cell Distribution Width 14.7 % (11.5-14.5); White Blood Count 8.3 K/mm3 (4.5-10.0)
[2023-06-03 19:02] LABS: Troponin I < 0.012 ng/mL (0.000-0.034)
[2023-06-03] MEDS: cefTRIAXone 2 GM/NS 100 ML 2 GM/100 ML BAG IVPB (20:44)
[2023-06-03] MEDS: VANCOMYCIN 1,250 MG/NS 250 ML 1,250 MG/250 ML BAG 166.67 MG IVPB (22:26)
[2023-06-04] VITALS (9 sets, daily range): BP systolic 113–120; BP diastolic 64–74; PULSE 73–89; RESP 16–20; TEMP 36.1–36.3; O2SAT 99–100
[2023-06-04] MEDS: VANCOMYCIN 1,000 MG/NS 250 ML 1,000 MG/250 ML BAG 250 MG IVPB (00:17)
[2023-06-04 06:22] LABS: Hematocrit 35.5 % (37.0-47.0); Hemoglobin 11.1 g/dL (12.0-15.0); Mean Corpuscular HGB Conc 31.3 g/dl (32-36); Mean Corpuscular Hemoglobin 26.5 pg (26-34); Mean Corpuscular Volume 84.7 fl (80-100); Mean Platelet Volume 10.2 fl (7.4-10.4); Platelet Count Result 320 k/mm3 (150-375); Red Blood Count 4.19 M/mm3 (4.2-5.4); Red Cell Distribution Width 14.7 % (11.5-14.5); White Blood Count 10.8 K/mm3 (4.5-10.0)
[2023-06-04 06:37] LABS: Alanine Aminotransferase 22 U/L (6-35); Albumin Level 3.1 g/dL (3.5-5.1); Alkaline Phosphatase 51 U/L (38-126); Anion Gap 4 mmol/L (8-16); Aspartate Amino Transferase 24 U/L (14-36); Bilirubin,Total 0.3 mg/dL (0.2-1.3); Blood Urea Nitrogen 8 mg/dL (7-17); Calcium 7.9 mg/dL (8.4-10.2); Carbon Dioxide 23 mmol/L (22-30); Chloride 109 mmol/L (98-107); Estimated CRCL calculation 113 ml/min; Estimated Glomerular Filt Rate > 60; Glucose 113 mg/dL (65-110); Potassium 3.6 mmol/L (3.4-5.0); Sodium 136 mmol/L (137-145)
[2023-06-04 06:43] LABS: Iron 40 ug/dL (37-170)
[2023-06-04 06:52] LABS: Percent Iron Saturation 11 % (20-50)
[2023-06-04 07:19] LABS: Ferritin 5.72 ng/mL (6.24-137)
[2023-06-04 07:43] LABS: Folic Acid 7.4 ng/mL (2.76->20)
--- NOTE | 2023-06-04 08:49 | P.PNIM_ITS ---
Progress Note: A&P Assessment and Plan (1) Seizure-like activity: Code(s): R56.9 - Unspecified convulsions Status: Acute Assessment and Plan: * seizure-like activity, described as tonic clonic * Brain CT was normal but her brain MRI did show 3 enhancing lesions with a differential diagnosis to include malignancy, infection, multiple sclerosis, or infarct. * MS is also possibility given intermittent paresthesias in sensation changes * EEG ordered for this a.m * Defer further workup to Neurology whose input is greatly appreciated. 06/02 * patient expressed potentially 3 seizures total * neurology at bedside for exam * eeg complete- neurology noted the results as normal routine EEG recorded in awake and drowsy states. There are no electrographic seizures identified, nor are there any epileptiform discharges. * neurology will add MRI cervical thoracic and lumbar spine, lumbar puncture, CTA brain carotid, surface echo with bubble study, lipid panel and hemoglobin A1c * continue Keppra 500mg b.i.d. 06/03 * no further seizure activity within this admission * CT C/A/P was unrevealing. CTA brain/carotid for vasculitis without any significant vascular findings but did show significant dental disease. CSF studies showed cell count of 21 with 96% lymphocytes and protein of 72 with normal glucose. CSF culture and other infectious studies are pending. * She was started on vancomycin, ceftriaxone, and acyclovir yesterday evening after CSF results were available. * She has not had any fevers since the admission. (2) Abnormal brain MRI: Code(s): R90.89 - Other abnormal findings on diagnostic imaging of central nervous system Status: Acute Assessment and Plan: * Brain CT was normal but her brain MRI did show 3 enhancing lesions with a differential diagnosis to include malignancy, infection, multiple sclerosis, or infarct. * Defer further workup to Neurology whose input is greatly appreciated. 06/02 * neurology will add MRI cervical thoracic and lumbar spine, lumbar puncture, CTA brain carotid, surface echo with bubble study, lipid panel and hemoglobin A1c * oncology consulted for potential primary malignancy 06/03 * CT C/A/P was unrevealing. CTA brain/carotid for vasculitis without any significant vascular findings but did show significant dental disease. CSF studies showed cell count of 21 with 96% lymphocytes and protein of 72 with normal glucose. CSF culture and other infectious studies are pending. She was started on vancomycin, ceftriaxone, and acyclovir yesterday evening after CSF results were available. She has not had any fevers since the admission. * oncologist consult today and note discuses the brain cancers simply seen as 1 primary lesion rather than multiple lesions but malignancy cannot be ruled out at this point. note they suggest waiting for lumbar puncture findings before considering a brain biopsy, and biopsy would be suggested if workup is completely negative from Neurology standpoint since this would be an invasive procedure. (3) Palpitations: Code(s): R00.2 - Palpitations Status: Acute Assessment and Plan: * describes palpitations- noted that smart watch stated HR greater than 180 * possible proximal atrial fibrillation * echo ordered 06/02 * echo completed and results noted Left ventricular systolic function is normal, estimated at 60-65%. The left ventricular diastolic function is normal. * tele monitor at time of assessment was normal sinus rhythm 06/03 * patient's heart rate 70-80s today * last night EKG read normal sinus rhythm * patient d
--- NOTE | 2023-06-04 08:49 | PM.IMPN ---
Progress Note: A&P Assessment and Plan (1) Seizure-like activity: Code(s): R56.9 - Unspecified convulsions Status: Acute Assessment and Plan: seizure-like activity, described as tonic clonic Brain CT was normal but her brain MRI did show 3 enhancing lesions with a differential diagnosis to include malignancy, infection, multiple sclerosis, or infarct. MS is also possibility given intermittent paresthesias in sensation changes EEG ordered for this a.m Defer further workup to Neurology whose input is greatly appreciated. 06/02 patient expressed potentially 3 seizures total neurology at bedside for exam eeg complete- neurology noted the results as normal routine EEG recorded in awake and drowsy states. There are no electrographic seizures identified, nor are there any epileptiform discharges. neurology will add MRI cervical thoracic and lumbar spine, lumbar puncture, CTA brain carotid, surface echo with bubble study, lipid panel and hemoglobin A1c continue Keppra 500mg b.i.d. 06/03 no further seizure activity within this admission CT C/A/P was unrevealing. CTA brain/carotid for vasculitis without any significant vascular findings but did show significant dental disease. CSF studies showed cell count of 21 with 96% lymphocytes and protein of 72 with normal glucose. CSF culture and other infectious studies are pending. She was started on vancomycin, ceftriaxone, and acyclovir yesterday evening after CSF results were available. She has not had any fevers since the admission. (2) Abnormal brain MRI: Code(s): R90.89 - Other abnormal findings on diagnostic imaging of central nervous system Status: Acute Assessment and Plan: Brain CT was normal but her brain MRI did show 3 enhancing lesions with a differential diagnosis to include malignancy, infection, multiple sclerosis, or infarct. Defer further workup to Neurology whose input is greatly appreciated. 06/02 neurology will add MRI cervical thoracic and lumbar spine, lumbar puncture, CTA brain carotid, surface echo with bubble study, lipid panel and hemoglobin A1c oncology consulted for potential primary malignancy 06/03 CT C/A/P was unrevealing. CTA brain/carotid for vasculitis without any significant vascular findings but did show significant dental disease. CSF studies showed cell count of 21 with 96% lymphocytes and protein of 72 with normal glucose. CSF culture and other infectious studies are pending. She was started on vancomycin, ceftriaxone, and acyclovir yesterday evening after CSF results were available. She has not had any fevers since the admission. oncologist consult today and note discuses the brain cancers simply seen as 1 primary lesion rather than multiple lesions but malignancy cannot be ruled out at this point. note they suggest waiting for lumbar puncture findings before considering a brain biopsy, and biopsy would be suggested if workup is completely negative from Neurology standpoint since this would be an invasive procedure. (3) Palpitations: Code(s): R00.2 - Palpitations Status: Acute Assessment and Plan: describes palpitations- noted that smart watch stated HR greater than 180 possible proximal atrial fibrillation echo ordered 06/02 echo completed and results noted Left ventricular systolic function is normal, estimated at 60-65%. The left ventricular diastolic function is normal. tele monitor at time of assessment was normal sinus rhythm 06/03 patient's heart rate 70-80s today last night EKG read normal sinus rhythm patient denies palpitations or chest pain or shortness of breath at this time (4) Suspected sleep apnea: Code(s): R29.818 - Other symptoms and signs involving the nervous system Status: Acute Assessment and Plan: reports that she has been snoring and she endorses occasional paroxysmal nocturnal dyspnea thus will check an apnea link (5) Abdomina
[2023-06-04] MEDS: cefTRIAXone 2 GM/NS 100 ML 2 GM/100 ML BAG IVPB ×2 (08:55→23:25)
[2023-06-04] MEDS: levETIRAcetam 500 MG TABLET PO ×2 (08:55→20:32)
--- NOTE | 2023-06-04 10:59 | WPDNEUROPN ---
Progress Note: A&P Assessment and Plan (1) Seizure-like activity: Code(s): R56.9 - Unspecified convulsions Status: Acute (2) Abnormal brain MRI: Code(s): R90.89 - Other abnormal findings on diagnostic imaging of central nervous system Status: Acute (3) Brain lesion: Code(s): G93.9 - Disorder of brain, unspecified Status: Acute Plan Patient is a previously healthy 38 year old female presenting due to new onset seizures in the setting of new enhancing brain lesions. Differential diagnosis is broad at this point. I think unlikely to be stroke given contrast enhancement, but considering vasculitis. Less likely to be demyelinating disease given presentation of seizure, but that is also on the differential, as well as infection due to meningitis/encephalitis and metastatic disease. Leaning more towards infectious etiology given preceding seizures. - Continue antibiotics and acyclovir until CSF cultures/PCR return - Obtain MRI of the cervical, thoracic, and lumbar spine with and without contrast - Oncology consulted for possibility of mets - CSF studies pending -- evaluated for bacterial, fungal, TB, HSV, Lyme, Cryptococcus; cytology, MS panel, and CSF DENISE - Obtain surface echo with bubble study, check LDL and HgbA1c - Continue Keppra 500mg BID - Patient should not drive or operative heavy machinery until she is seizure free for at least six months Subjective Date/time seen: 06/04/23 10:59 Interval history: Nichole Greene is a 38 year old female with no significant past medical history presenting with new onset seizure. Patient has had three seizures in the past week. Last Tuesday, while driving she started to feel strange. She pulled over into the parking lot and called her who reported that she had stuttering speech. The next thing she remembers is waking up with pain on her tongue as it appeared that she had bit her tongue. The following night, her son herd her make a strange noise and found her convulsing, lasted a few minutes. She was confused afterwards. On the day prior to presentation, she woke up from sleep, sat up, made a strange yelping noise, and then had full body convulsions again. She has no prior history of seizures. Patient is adopted so she does not know her family history. Her son however had a brain tumor. CT head in the ER did not show any acute findings. She was started on Keppra 500mg BID and admitted for further evaluation. MRI brain was done during this admission which showed 3 enhancing lesions -- read as possible metastatic disease, infection, MS, and subacute infarctions. Patient denies any recent illnesses. She has lost some weight unintentionally but not significant. Labs are unrevealing. No elevation in WBC or electrolyte derangement. She reports that she checked her temperature before the second seizure and she did have a fever of 102 degrees F. She denies any unilateral vision loss or focal numbness/weakness in the past. She has burning pain in both hands that wake her from sleep which started a few months ago. Oncology consulted for MRI findings. CT C/A/P was unrevealing. CTA brain/carotid for vasculitis without any significant vascular findings but did show significant dental disease. CSF studies showed cell count of 21 with 96% lymphocytes and protein of 72 with normal glucose. CSF culture and other infectious studies are pending. She was started on vancomycin, ceftriaxone, and acyclovir yesterday evening after CSF results were available. She has not had any fevers since the admission. Patient reports feeling much better today. She was able to get up and take a shower. She is anxious to go home. Review of Systems Review of Systems: All systems reviewed & are unremarkable except as noted in HPI and below Exam Const: General: comfortable, no acute distress and well nourished Nutritional Appearance: well nourished HENMT: Head: normocephalic and atraumatic Ears: he
[2023-06-04] MEDS: VANCOMYCIN 1,500 MG/NS 500 ML 1,500 MG/500 ML BAG 250 MG IVPB (12:06)
[2023-06-04] MEDS: ACETAMINOPHEN 325 MG TABLET 650 MG PO (20:31)
[2023-06-05] VITALS (8 sets, daily range): BP systolic 111–119; BP diastolic 61–75; PULSE 73–97; RESP 18–20; TEMP 36.3–36.9; O2SAT 98–100
--- NOTE | 2023-06-05 01:55 | PC.NURSE ---
Daylight Savings Time For Daylight Savings Time Ending in the Fall - Clocks are moved back. For Daylight Savings Time Beginning in the Spring - Clocks are moved ahead. For [facility], the time of change occurs at 0200 hrs. Time is taken from the server security administrator. This entry on the patient's chart recognizes the change in time reflected during documentation. Example: 2 entries for vital signs may be charted for 0200 hrs.
[2023-06-05 06:15] LABS: Hematocrit 35.8 % (37.0-47.0); Mean Corpuscular HGB Conc 30.7 g/dl (32-36); Mean Corpuscular Hemoglobin 26.4 pg (26-34); Mean Corpuscular Volume 86.1 fl (80-100); Mean Platelet Volume 10.4 fl (7.4-10.4); Platelet Count Result 330 k/mm3 (150-375); Red Blood Count 4.16 M/mm3 (4.2-5.4); Red Cell Distribution Width 14.6 % (11.5-14.5); White Blood Count 7.8 K/mm3 (4.5-10.0)
[2023-06-05 06:23] LABS: Alanine Aminotransferase 23 U/L (6-35); Albumin Level 3.2 g/dL (3.5-5.1); Alkaline Phosphatase 51 U/L (38-126); Anion Gap 3 mmol/L (8-16); Aspartate Amino Transferase 24 U/L (14-36); Bilirubin,Total 0.3 mg/dL (0.2-1.3); Blood Urea Nitrogen 12 mg/dL (7-17); Calcium 8.3 mg/dL (8.4-10.2); Carbon Dioxide 28 mmol/L (22-30); Chloride 108 mmol/L (98-107); Cholesterol 142 mg/dL (0-200); Estimated CRCL calculation 99 ml/min; Estimated Glomerular Filt Rate > 60; Glucose 111 mg/dL (65-110); HDL Direct 32 mg/dL; Sodium 139 mmol/L (137-145); Triglycerides 86 mg/dL (<150)
[2023-06-05 06:33] LABS: LDL Cholesterol Direct 101 mg/dL
[2023-06-05 06:44] LABS: Potassium 3.8 mmol/L (3.4-5.0)
[2023-06-05 06:59] LABS: Hemoglobin A1C 5.4 % (<5.7)
[2023-06-05] MEDS: levETIRAcetam 500 MG TABLET PO ×2 (08:45→21:25)
[2023-06-05] MEDS: cefTRIAXone 2 GM/NS 100 ML 2 GM/100 ML BAG IVPB ×2 (08:47→21:29)
--- NOTE | 2023-06-05 09:10 | P.PNIM_ITS ---
Progress Note: A&P Assessment and Plan (1) Seizure-like activity: Code(s): R56.9 - Unspecified convulsions Status: Acute Assessment and Plan: * seizure-like activity, described as tonic clonic * Brain CT was normal but her brain MRI did show 3 enhancing lesions with a differential diagnosis to include malignancy, infection, multiple sclerosis, or infarct. * MS is also possibility given intermittent paresthesias in sensation changes * EEG ordered for this a.m * Defer further workup to Neurology whose input is greatly appreciated. 06/02 * patient expressed potentially 3 seizures total * neurology at bedside for exam * eeg complete- neurology noted the results as normal routine EEG recorded in awake and drowsy states. There are no electrographic seizures identified, nor are there any epileptiform discharges. * neurology will add MRI cervical thoracic and lumbar spine, lumbar puncture, CTA brain carotid, surface echo with bubble study, lipid panel and hemoglobin A1c * continue Keppra 500mg b.i.d. 06/03 * no further seizure activity within this admission * CT C/A/P was unrevealing. CTA brain/carotid for vasculitis without any significant vascular findings but did show significant dental disease. CSF studies showed cell count of 21 with 96% lymphocytes and protein of 72 with normal glucose. CSF culture and other infectious studies are pending. * She was started on vancomycin, ceftriaxone, and acyclovir yesterday evening after CSF results were available. * She has not had any fevers since the admission. 06/04 * no seizure activity reported * MRI spine, thoracic, cervical, lumbar ordered and to be completed today- IV Ativan given for anxiety of scans * patient questions why she cannot be discharged as she has no further seizure activity at this time. patient extensively educated on current findings of the exams, and need of appropriate workup to implement appropriate treatment plan to follow discharge * continue current antibiotics and antivirals (2) Abnormal brain MRI: Code(s): R90.89 - Other abnormal findings on diagnostic imaging of central nervous system Status: Acute Assessment and Plan: * Brain CT was normal but her brain MRI did show 3 enhancing lesions with a differential diagnosis to include malignancy, infection, multiple sclerosis, or infarct. * Defer further workup to Neurology whose input is greatly appreciated. 06/02 * neurology will add MRI cervical thoracic and lumbar spine, lumbar puncture, CTA brain carotid, surface echo with bubble study, lipid panel and hemoglobin A1c * oncology consulted for potential primary malignancy 06/03 * CT C/A/P was unrevealing. CTA brain/carotid for vasculitis without any sig nificant vascular findings but did show significant dental disease. CSF studies showed cell count of 21 with 96% lymphocytes and protein of 72 with normal glucose. CSF culture and other infectious studies are pending. She was started on vancomycin, ceftriaxone, and acyclovir yesterday evening after CSF results were available. She has not had any fevers since the admission. * oncologist consult today and note discuses the brain cancers simply seen as 1 primary lesion rather than multiple lesions but malignancy cannot be ruled out at this point. note they suggest waiting for lumbar puncture findings before considering a brain biopsy, and biopsy would be suggested if workup is completely negative from Neurology standpoint since this would be an invasive procedure. 06/04 * MRIs of spine, cervical, thoracic, lumbar ordered and to be completed today. * patient discussed anxiety over
--- NOTE | 2023-06-05 09:10 | PM.IMPN ---
Progress Note: A&P Assessment and Plan (1) Seizure-like activity: Code(s): R56.9 - Unspecified convulsions Status: Acute Assessment and Plan: seizure-like activity, described as tonic clonic Brain CT was normal but her brain MRI did show 3 enhancing lesions with a differential diagnosis to include malignancy, infection, multiple sclerosis, or infarct. MS is also possibility given intermittent paresthesias in sensation changes EEG ordered for this a.m Defer further workup to Neurology whose input is greatly appreciated. 06/02 patient expressed potentially 3 seizures total neurology at bedside for exam eeg complete- neurology noted the results as normal routine EEG recorded in awake and drowsy states. There are no electrographic seizures identified, nor are there any epileptiform discharges. neurology will add MRI cervical thoracic and lumbar spine, lumbar puncture, CTA brain carotid, surface echo with bubble study, lipid panel and hemoglobin A1c continue Keppra 500mg b.i.d. 06/03 no further seizure activity within this admission CT C/A/P was unrevealing. CTA brain/carotid for vasculitis without any significant vascular findings but did show significant dental disease. CSF studies showed cell count of 21 with 96% lymphocytes and protein of 72 with normal glucose. CSF culture and other infectious studies are pending. She was started on vancomycin, ceftriaxone, and acyclovir yesterday evening after CSF results were available. She has not had any fevers since the admission. 06/04 no seizure activity reported MRI spine, thoracic, cervical, lumbar ordered and to be completed today- IV Ativan given for anxiety of scans patient questions why she cannot be discharged as she has no further seizure activity at this time. patient extensively educated on current findings of the exams, and need of appropriate workup to implement appropriate treatment plan to follow discharge continue current antibiotics and antivirals (2) Abnormal brain MRI: Code(s): R90.89 - Other abnormal findings on diagnostic imaging of central nervous system Status: Acute Assessment and Plan: Brain CT was normal but her brain MRI did show 3 enhancing lesions with a differential diagnosis to include malignancy, infection, multiple sclerosis, or infarct. Defer further workup to Neurology whose input is greatly appreciated. 06/02 neurology will add MRI cervical thoracic and lumbar spine, lumbar puncture, CTA brain carotid, surface echo with bubble study, lipid panel and hemoglobin A1c oncology consulted for potential primary malignancy 06/03 CT C/A/P was unrevealing. CTA brain/carotid for vasculitis without any significant vascular findings but did show significant dental disease. CSF studies showed cell count of 21 with 96% lymphocytes and protein of 72 with normal glucose. CSF culture and other infectious studies are pending. She was started on vancomycin, ceftriaxone, and acyclovir yesterday evening after CSF results were available. She has not had any fevers since the admission. oncologist consult today and note discuses the brain cancers simply seen as 1 primary lesion rather than multiple lesions but malignancy cannot be ruled out at this point. note they suggest waiting for lumbar puncture findings before considering a brain biopsy, and biopsy would be suggested if workup is completely negative from Neurology standpoint since this would be an invasive procedure. 06/04 MRIs of spine, cervical, thoracic, lumbar ordered and to be completed today. patient discussed anxiety over scan. 1mg IV Ativan ordered and neurology aware (3) Palpitations: Code(s): R00.2 - Palpitations Status: Acute Assessment and Plan: describes palpitations- noted that smart watch stated HR greater than 180 possible proximal atrial fibrillation echo ordered 06/02 echo completed and results noted Left ventricular systolic
[2023-06-05] MEDS: LORazepam INJ (*CRX) 2 MG/ML VIAL 1 MG IV PUSH (10:24)
[2023-06-05] MEDS: VANCOMYCIN 1,500 MG/NS 500 ML 1,500 MG/500 ML BAG 250 MG IVPB (12:26)
[2023-06-05 13:02] LABS: VDRL Quantitative CSF Nonreactive (Nonreactive)
[2023-06-05] MEDS: FERROUS SULFATE 325 MG TABLET DR PO (21:28)
[2023-06-05] MEDS: SALINE LOCK FLUSH 10 ML IV PUSH (21:29)
[2023-06-05 21:46] LABS: Cryptococcus Antigen Not Detected (Not Detected); Cryptococcus Specimen Source CSF
[2023-06-05 21:55] LABS: Vancomycin Trough 12.6 ug/mL (10.0-20.0)
[2023-06-05] MEDS: VANCOMYCIN 1,750 MG/NS 500 ML 1,750 MG/500 ML BAG 250 MG IVPB (23:46)
[2023-06-06] VITALS (8 sets, daily range): BP systolic 118–144; BP diastolic 58–84; PULSE 73–96; RESP 12–20; TEMP 36.5–36.9; O2SAT 98–100
[2023-06-06 05:23] LABS: Hematocrit 33.3 % (37.0-47.0); Hemoglobin 10.4 g/dL (12.0-15.0); Mean Corpuscular HGB Conc 31.2 g/dl (32-36); Mean Corpuscular Hemoglobin 26.5 pg (26-34); Mean Corpuscular Volume 84.7 fl (80-100); Mean Platelet Volume 10.2 fl (7.4-10.4); Platelet Count Result 310 k/mm3 (150-375); Red Blood Count 3.93 M/mm3 (4.2-5.4); Red Cell Distribution Width 14.7 % (11.5-14.5); White Blood Count 7.6 K/mm3 (4.5-10.0)
[2023-06-06 05:30] LABS: Alanine Aminotransferase 21 U/L (6-35); Alkaline Phosphatase 48 U/L (38-126); Anion Gap 2 mmol/L (8-16); Aspartate Amino Transferase 21 U/L (14-36); Bilirubin,Total 0.2 mg/dL (0.2-1.3); Blood Urea Nitrogen 10 mg/dL (7-17); Calcium 8.1 mg/dL (8.4-10.2); Carbon Dioxide 25 mmol/L (22-30); Chloride 110 mmol/L (98-107); Estimated CRCL calculation 113 ml/min; Estimated Glomerular Filt Rate > 60; Glucose 89 mg/dL (65-110); Potassium 3.9 mmol/L (3.4-5.0); Sodium 137 mmol/L (137-145)
--- NOTE | 2023-06-06 08:03 | P.PNIM_ITS ---
Progress Note: A&P Assessment and Plan (1) Seizure-like activity: Code(s): R56.9 - Unspecified convulsions Status: Acute Assessment and Plan: * seizure-like activity, described as tonic clonic * Brain CT was normal but her brain MRI did show 3 enhancing lesions with a differential diagnosis to include malignancy, infection, multiple sclerosis, or infarct. * MS is also possibility given intermittent paresthesias in sensation changes * EEG ordered for this a.m * Defer further workup to Neurology whose input is greatly appreciated. 06/02 * patient expressed potentially 3 seizures total * neurology at bedside for exam * eeg complete- neurology noted the results as normal routine EEG recorded in awake and drowsy states. There are no electrographic seizures identified, nor are there any epileptiform discharges. * neurology will add MRI cervical thoracic and lumbar spine, lumbar puncture, CTA brain carotid, surface echo with bubble study, lipid panel and hemoglobin A1c * continue Keppra 500mg b.i.d. 06/03 * no further seizure activity within this admission * CT C/A/P was unrevealing. CTA brain/carotid for vasculitis without any significant vascular findings but did show significant dental disease. CSF studies showed cell count of 21 with 96% lymphocytes and protein of 72 with normal glucose. CSF culture and other infectious studies are pending. * She was started on vancomycin, ceftriaxone, and acyclovir yesterday evening after CSF results were available. * She has not had any fevers since the admission. 06/04 * no seizure activity reported * MRI spine, thoracic, cervical, lumbar ordered and to be completed today- IV Ativan given for anxiety of scans * patient questions why she cannot be discharged as she has no further seizure activity at this time. patient extensively educated on current findings of the exams, and need of appropriate workup to implement appropriate treatment plan to follow discharge * continue current antibiotics and antivirals 06/05 * no seizure activity reported * MRI spine, thoracic, cervical, lumbar * Cervical: ll-defined lesions of increased T2-weighted signal intensity in spinal cord with some areas of contrast enhancement. The differential diagnosis includes multiple sclerosis and infection such as viral myelitis. * Thoracic: Spinal cord lesions. The differential diagnosis includes multiple sclerosis and infection such as viral myelitis * Lumbar: Mild lumbar spondylosis * PICC in place * Continue current IV abx and antivirals (2) Abnormal brain MRI: Code(s): R90.89 - Other abnormal findings on diagnostic imaging of central nervous system Status: Acute Assessment and Plan: * Brain CT was normal but her brain MRI did show 3 enhancing lesions with a differential diagnosis to include malignancy, infection, multiple sclerosis, or infarct. * Defer further workup to Neurology whose input is greatly appreciated. 06/02 * neurology will add MRI cervical thoracic and lumbar spine, lumbar puncture, CTA brain carotid, surface echo with bubble study, lipid panel and hemoglobin A1c * oncology consulted for potential primary malignancy 06/03 * CT C/A/P was unrevealing. CTA brain/carotid for vasculitis without any significant vascular findings but did show significant dental disease. CSF studies showed cell count of 21 with 96% lymphocytes and protein of 72 with normal glucose. CSF culture and other infectious studies are pending. She was started on vancomycin, ceftriaxone, and acyclovir yesterday evening after CSF results were available. She has not had any fevers since the ad
--- NOTE | 2023-06-06 08:03 | PM.IMPN ---
Progress Note: A&P Assessment and Plan (1) Seizure-like activity: Code(s): R56.9 - Unspecified convulsions Status: Acute Assessment and Plan: seizure-like activity, described as tonic clonic Brain CT was normal but her brain MRI did show 3 enhancing lesions with a differential diagnosis to include malignancy, infection, multiple sclerosis, or infarct. MS is also possibility given intermittent paresthesias in sensation changes EEG ordered for this a.m Defer further workup to Neurology whose input is greatly appreciated. 06/02 patient expressed potentially 3 seizures total neurology at bedside for exam eeg complete- neurology noted the results as normal routine EEG recorded in awake and drowsy states. There are no electrographic seizures identified, nor are there any epileptiform discharges. neurology will add MRI cervical thoracic and lumbar spine, lumbar puncture, CTA brain carotid, surface echo with bubble study, lipid panel and hemoglobin A1c continue Keppra 500mg b.i.d. 06/03 no further seizure activity within this admission CT C/A/P was unrevealing. CTA brain/carotid for vasculitis without any significant vascular findings but did show significant dental disease. CSF studies showed cell count of 21 with 96% lymphocytes and protein of 72 with normal glucose. CSF culture and other infectious studies are pending. She was started on vancomycin, ceftriaxone, and acyclovir yesterday evening after CSF results were available. She has not had any fevers since the admission. 06/04 no seizure activity reported MRI spine, thoracic, cervical, lumbar ordered and to be completed today- IV Ativan given for anxiety of scans patient questions why she cannot be discharged as she has no further seizure activity at this time. patient extensively educated on current findings of the exams, and need of appropriate workup to implement appropriate treatment plan to follow discharge continue current antibiotics and antivirals 06/05 no seizure activity reported MRI spine, thoracic, cervical, lumbar Cervical: ll-defined lesions of increased T2-weighted signal intensity in spinal cord with some areas of contrast enhancement. The differential diagnosis includes multiple sclerosis and infection such as viral myelitis. Thoracic: Spinal cord lesions. The differential diagnosis includes multiple sclerosis and infection such as viral myelitis Lumbar: Mild lumbar spondylosis PICC in place Continue current IV abx and antivirals (2) Abnormal brain MRI: Code(s): R90.89 - Other abnormal findings on diagnostic imaging of central nervous system Status: Acute Assessment and Plan: Brain CT was normal but her brain MRI did show 3 enhancing lesions with a differential diagnosis to include malignancy, infection, multiple sclerosis, or infarct. Defer further workup to Neurology whose input is greatly appreciated. 06/02 neurology will add MRI cervical thoracic and lumbar spine, lumbar puncture, CTA brain carotid, surface echo with bubble study, lipid panel and hemoglobin A1c oncology consulted for potential primary malignancy 06/03 CT C/A/P was unrevealing. CTA brain/carotid for vasculitis without any significant vascular findings but did show significant dental disease. CSF studies showed cell count of 21 with 96% lymphocytes and protein of 72 with normal glucose. CSF culture and other infectious studies are pending. She was started on vancomycin, ceftriaxone, and acyclovir yesterday evening after CSF results were available. She has not had any fevers since the admission. oncologist consult today and note discuses the brain cancers simply seen as 1 primary lesion rather than multiple lesions but malignancy cannot be ruled out at this point. note they suggest waiting for lumbar puncture findings before considering a brain biopsy, and biopsy would be suggested if workup is completely negative from Neurology standpoint since
[2023-06-06] MEDS: levETIRAcetam 500 MG TABLET PO ×2 (08:18→21:04)
[2023-06-06] MEDS: cefTRIAXone 2 GM/NS 100 ML 2 GM/100 ML BAG IVPB ×2 (08:18→21:03)
[2023-06-06] MEDS: FERROUS SULFATE 325 MG TABLET DR PO ×2 (08:18→16:19)
[2023-06-06] MEDS: CYANOCOBALAMIN 500 MCG TABLET PO (08:18)
[2023-06-06] MEDS: VANCOMYCIN 1,750 MG/NS 500 ML 1,750 MG/500 ML BAG 250 MG IVPB (10:02)
[2023-06-06] MEDS: SALINE LOCK FLUSH 10 ML IV PUSH ×2 (14:00→21:10)
[2023-06-06 22:37] LABS: Vancomycin Trough 8.9 ug/mL (10.0-20.0)
[2023-06-06] MEDS: VANCOMYCIN 2,000 MG/NS 500 ML 2,000 MG/500 ML BAG 250 MG IVPB (23:22)
[2023-06-06 23:53] LABS: Herpes Simplex Type 1 DNA PCR Not Detected (Not Detected); Herpes Simplex Type 2 DNA PCR Not Detected (Not Detected)
[2023-06-07] VITALS (9 sets, daily range): BP systolic 97–112; BP diastolic 45–78; PULSE 73–100; RESP 14–18; TEMP 36.2–36.5; O2SAT 99–100
[2023-06-07] MEDS: SALINE LOCK FLUSH 10 ML IV PUSH ×3 (04:42→21:51)
[2023-06-07 07:06] LABS: Hematocrit 32.9 % (37.0-47.0); Hemoglobin 10.4 g/dL (12.0-15.0); Mean Corpuscular HGB Conc 31.6 g/dl (32-36); Mean Corpuscular Hemoglobin 26.8 pg (26-34); Mean Corpuscular Volume 84.8 fl (80-100); Mean Platelet Volume 10.3 fl (7.4-10.4); Platelet Count Result 329 k/mm3 (150-375); Red Blood Count 3.88 M/mm3 (4.2-5.4); Red Cell Distribution Width 15.1 % (11.5-14.5); White Blood Count 7.7 K/mm3 (4.5-10.0)
[2023-06-07 07:31] LABS: Alanine Aminotransferase 18 U/L (6-35); Albumin Level 3.1 g/dL (3.5-5.1); Alkaline Phosphatase 48 U/L (38-126); Anion Gap 4 mmol/L (8-16); Aspartate Amino Transferase 19 U/L (14-36); Bilirubin,Total 0.2 mg/dL (0.2-1.3); Blood Urea Nitrogen 13 mg/dL (7-17); Carbon Dioxide 24 mmol/L (22-30); Chloride 110 mmol/L (98-107); Estimated CRCL calculation 113 ml/min; Estimated Glomerular Filt Rate > 60; Glucose 84 mg/dL (65-110); Sodium 138 mmol/L (137-145)
[2023-06-07] MEDS: ACETAMINOPHEN 325 MG TABLET 650 MG PO ×3 (08:05→20:28)
[2023-06-07] MEDS: levETIRAcetam 500 MG TABLET PO ×2 (08:06→20:30)
[2023-06-07] MEDS: CYANOCOBALAMIN 500 MCG TABLET PO (08:06)
[2023-06-07] MEDS: FERROUS SULFATE 325 MG TABLET DR PO ×2 (08:06→16:20)
[2023-06-07] MEDS: cefTRIAXone 2 GM/NS 100 ML 2 GM/100 ML BAG IVPB (08:25)
[2023-06-07] MEDS: IBUPROFEN 600 MG TABLET PO (09:50)
[2023-06-07 10:20] LABS: Methylmalonic Acid 143 nmol/L (87-318)
[2023-06-07] MEDS: VANCOMYCIN 2,000 MG/NS 500 ML 2,000 MG/500 ML BAG 250 MG IVPB (12:22)
--- NOTE | 2023-06-07 12:22 | PC.NURSE ---
On 06/07/23, the student, Yelena Goff, provided care and completed [facility] documentation on this patient. I have reviewed the student's documentation and agree with the findings.
--- NOTE | 2023-06-07 17:08 | PM.IMPN ---
Progress Note: A&P Assessment and Plan (1) Seizure-like activity: Code(s): R56.9 - Unspecified convulsions Status: Acute Assessment and Plan: x (2) Abnormal brain MRI: Code(s): R90.89 - Other abnormal findings on diagnostic imaging of central nervous system Status: Acute (3) Palpitations: Code(s): R00.2 - Palpitations Status: Acute (4) Suspected sleep apnea: Code(s): R29.818 - Other symptoms and signs involving the nervous system Status: Acute (5) Abdominal pain: Code(s): R10.9 - Unspecified abdominal pain Status: Acute Plan The patient presented to the emergency department for evaluation after a seizure. CT head was negative. Brain MRI showed 3 enhancing lesions with a differential diagnosis to include malignancy, infection, multiple sclerosis, or infarct. Echo unremarkable. Neurology consulted and started on Keppra b.i.d.. She had few seizures in the past week. She reported stuttering speech and waking up with pain on her tongue as it appear that she had bit her tongue. Her son heard her make strange noise at night and found her convulsing lasting few minutes. She was also reported to be confused afterwards. No prior history of seizures. Her son is diagnosed with glioblastoma multiforme. Metastatic workup negative so far with CTA chest abdomen pelvis with no suspicious findings. Oncology has also been consulted. EEG done on 06/03/2023 normal. Subsequently had lumbar puncture performed which showed lymphocytic mildly increased cells. Not suggestive of bacterial meningitis. Bacterial cultures been negative. She has been started empirically on ceftriaxone vancomycin and acyclovir. HSV PCR came back negative. VZV pending poor cryptococcus negative. Will stop IV antibiotics. Continue IV acyclovir until VZV back. Multiple sclerosis panel pending. MRI cervical spine also has ill-defined lesions of increased T2 weighted signal intensity with some areas of contrast enhancement. All these findings suspicious for multiple sclerosis. She will need follow-up with Neurology and definitive spinal fluid analysis tests are pending. Apnea link performed in the hospital stay with score of 13.4 need sleep study as an outpatient basis Subjective Date/time seen: 06/07/23 17:08 Interval history: Complains of headache. No further seizures. Chart reviewed. Discussed with neurologist. Review of Systems Review of Systems: All systems reviewed & are unremarkable except as noted in HPI and below Exam Narrative: GENERAL: Well-appearing, well-nourished, and in no acute distress. HEAD: Normocephalic, atraumatic. EYES: PERRLA and EOMI. ENT: Nares clear. Mucous membranes moist. NECK: Supple. trachea midline CHEST: Clear to auscultation. No respiratory distress. HEART: Regular rate and rhythm. Normal peripheral pulses. ABDOMEN: Soft, nontender, nondistended. EXTREMITIES: Normal range of motion. No edema. SKIN: Warm, dry, no rash. NEURO: No focal deficits. Alert and oriented x3. PSYCH: Normal mood and affect. anxious to go home Objective Data Vital Signs Vital Signs: Vital Signs - 24 hr 06/06/23 21:13 06/06/23 20:00 06/06/23 20:00 Temperature 98.1 F Pulse Rate 75 96 Respiratory Rate 16 Blood Pressure 144/76 H Pulse Oximetry 100 Oxygen Delivery Room Air 06/07/23 00:00 06/07/23 04:00 06/07/23 06:00 Temperature 97.2 F L Pulse Rate 97 86 73 Respiratory Rate 14 Blood Pressure 97/68 L Pulse Oximetry 99 Oxygen Delivery 06/07/23 08:00 06/07/23 08:00 06/07/23 08:00 Temperature Pulse Rate 83 80 Respiratory Rate 18 Blood Pressure 99/78 L Pulse Oximetry 99 Oxygen Delivery Room Air 06/07/23 08:00 06/07/23 14:00 06/07/23 12:00 Temperature 97.7 F Pulse Rate 80 74 79 Respiratory Rate 18 Blood Pressure 112/78 Pulse Oximetry 100 Oxygen Delivery 06/07/23 16:00 Temperature Pulse R
--- NOTE | 2023-06-07 17:55 | WPDONCPN ---
Progress Note: A/P - Additional Plan Enhancing brain lesions. MRI showed 3 enhancing brain lesion and differential diagnosis includes metastatic disease, and multiple sclerosis, infection and subacute infarction. MRI of the thoracic spine showed spinal cord lesion and differential diagnosis include multiple sclerosis, infection versus myelitis. CT chest abdomen and pelvis showed no evidence of malignancy. There is a family history of melanoma in the grandfather. There is a family history of glioblastoma in the son. She never had mammogram done. She complain of nipple drainage from bilateral breast. On my examination there is no breast masses. We will order bilateral breast diagnostic mammogram. I will order PET scan as an outpatient and repeat brain MRI will be done as an outpatient. If needed brain biopsy can be done as an outpatient. She should be able to go home after the mammogram. - Time Spent With Patient Total time spent is greater than 50% in coordination of care (as documented) at patient's floor/unit and/or counseling patient: 25 - 35 minutes Subjective Interval history: Brain mass Seizure Review of Systems - Review of Systems Patient is resting comfortably. She denies any headaches and any further seizures. No chest pain and shortness of breath. She gave me the history of melanoma in the grandfather. Patient son was diagnosed with GBM at age of 6. She never had mammogram done. She denies any other new complaints today. - Neurologic Reports hearing normal Exam Vital signs: Temp Pulse Resp BP Pulse Ox O2 Del Method 36.5 C 100 18 112/78 100 Room Air 06/07/23 14:00 06/07/23 16:00 06/07/23 14:00 06/07/23 14:00 06/07/23 14:00 06/07/23 08:00 Narrative: Lungs are clear to auscultation bilaterally Cardiovascular regular rate rhythm no murmurs Abdomen soft nontender nondistended bowel sounds are positive Extremities no edema Bilateral breast examination showed no masses or lymphadenopathy. PN: Objective Data - Labs CBC & Chem 7: 06/07/23 06:26 06/07/23 06:26 Labs: Laboratory Results - last 24 hr 06/03/23 06/04/23 06/06/23 14:26 06:12 21:43 WBC RBC Hgb Hct MCV MCH MCHC RDW Plt Count MPV Sodium Potassium Chloride Carbon Dioxide Anion Gap BUN Creatinine Estim Creat Clear Calc Estimated GFR Glucose Calcium Total Bilirubin AST ALT Alkaline Phosphatase Total Protein Albumin Methylmalonic Acid 143 CSF Herpes I DNA (PCR) Not detected CSF Herpes II DNA (PCR) Not detected Vancomycin Trough 8.9 L HSV (PCR) Source Csf 06/07/23 06:26 WBC 7.7 RBC 3.88 L Hgb 10.4 L Hct 32.9 L MCV 84.8 MCH 26.8 MCHC 31.6 L RDW 15.1 H Plt Count 329 MPV 10.3 Sodium 138 Potassium 4.0 Chloride 110 H Carbon Dioxide 24 Anion Gap 4 L BUN 13 Creatinine 0.60 L Estim Creat Clear Calc 113 Estimated GFR > 60 Glucose 84 Calcium 8.0 L Total Bilirubin 0.2 AST 19 ALT 18 Alkaline Phosphatase 48 Total Protein 6.0 L Albumin 3.1 L Methylmalonic Acid CSF Herpes I DNA (PCR) CSF Herpes II DNA (PCR) Vancomycin Trough HSV (PCR) Source
[2023-06-07 20:06] LABS: VZV DNA, QL PCR Not Detected (Not Detected); Varicella Zoster Source CSF
[2023-06-08] VITALS (7 sets, daily range): BP systolic 90–135; BP diastolic 67–78; PULSE 76–99; RESP 14–18; TEMP 36.3–37; O2SAT 99–100
[2023-06-08] MEDS: SALINE LOCK FLUSH 10 ML IV PUSH (06:07)
[2023-06-08 07:02] LABS: Hematocrit 35.7 % (37.0-47.0); Hemoglobin 10.7 g/dL (12.0-15.0); Mean Corpuscular Hemoglobin 26.2 pg (26-34); Mean Corpuscular Volume 87.5 fl (80-100); Mean Platelet Volume 10.5 fl (7.4-10.4); Platelet Count Result 341 k/mm3 (150-375); Red Blood Count 4.08 M/mm3 (4.2-5.4); Red Cell Distribution Width 15.2 % (11.5-14.5); White Blood Count 7.7 K/mm3 (4.5-10.0)
[2023-06-08 07:12] LABS: Alanine Aminotransferase 19 U/L (6-35); Albumin Level 3.3 g/dL (3.5-5.1); Alkaline Phosphatase 51 U/L (38-126); Anion Gap 5 mmol/L (8-16); Aspartate Amino Transferase 23 U/L (14-36); Bilirubin,Total 0.2 mg/dL (0.2-1.3); Blood Urea Nitrogen 14 mg/dL (7-17); Calcium 8.3 mg/dL (8.4-10.2); Carbon Dioxide 23 mmol/L (22-30); Chloride 109 mmol/L (98-107); Estimated CRCL calculation 113 ml/min; Estimated Glomerular Filt Rate > 60; Glucose 106 mg/dL (65-110); Sodium 137 mmol/L (137-145)
[2023-06-08] MEDS: CYANOCOBALAMIN 500 MCG TABLET PO (08:35)
[2023-06-08] MEDS: FERROUS SULFATE 325 MG TABLET DR PO (08:35)
[2023-06-08] MEDS: levETIRAcetam 500 MG TABLET PO (08:35)
--- NOTE | 2023-06-08 08:57 | WPDNEUROPN ---
Progress Note: A&P Assessment and Plan (1) Brain lesion: Code(s): G93.9 - Disorder of brain, unspecified Status: Acute Assessment and Plan: The patient requires further investigations for the findings on the ice MRI of the brain as well as cervical thoracic spine. Possibility of [employer] lymphoma should be considered. A PET scan may be helpful but I shall leave this up to Oncology Service. The results of the spinal fluid for oligoclonal bands or multiple sclerosis also require follow-up and I waited. So far the findings are nonspecific. Mild increase in protein was noted but these did not appear to be a specific for any particular condition. (2) Abnormal brain MRI: Code(s): R90.89 - Other abnormal findings on diagnostic imaging of central nervous system Status: Acute Assessment and Plan: Please see the discussion above. (3) Seizure-like activity: Code(s): R56.9 - Unspecified convulsions Status: Acute Assessment and Plan: Patient is on anticonvulsant and should continue with the. Plan 1. I would suggest Oncology to evaluate further for possible PET scanning and brain biopsy if necessary after we see the results of CSF oligoclonal bands. Thus far the workup has been unremarkable. 2. Continue with anticonvulsants. 3. Patient should follow-up with Neurology Service in addition to oncology service Subjective Date/time seen: 06/06/2023 1130 am Interval history: The patient was admitted to the hospital was history suggestive of 3 episodes of seizures over a period of few days. Her records were reviewed. I also have reviewed the findings of various investigations including CSF and MRI of the brain and spinal cord. These also discussed with Dr. Delong who initially saw the patient. The patient is on anticonvulsants. She had not had any further problems previous he had not been evaluated by oncology service on account of finding of multiple lesions in the brain and now in the spinal cord including cervical and thoracic spine. The etiology of these remains unclear. Furthermore the patient had lost about 60 lb of weight in the last 3 4 months. This was unintentional. She also feels that she has some lump in her neck. She has undergone CT scan of the thorax and abdomen the findings of which are being reviewed by the oncology service. Review of Systems Review of Systems: All systems reviewed & are unremarkable except as noted in HPI and below Exam Const: General: cooperative, well developed and alert Orientation/consciousness: patient oriented x3 HENMT: Head: atraumatic Mouth: Yes oropharynx normal Eyes: Alignment and Position: position normal Pupils: Equal, round and reactive pupils present EOM: EOMs intact bilaterally Neck: Neck: supple Resp: Effort & Inspection: normal respiratory effort Auscultation: clear to auscultation bilaterally Neuro: General: patient oriented x3 Cranial nerves: Yes CN's II-XII intact bilaterally, Yes facial sensation intact/muscles of mastication intact, Yes Equal, round and reactive pupils present, Yes facial symmetry and Yes Midline tongue present Cognition (Neuro): normal cognition Speech: normal speech Gait exam (Neuro): Normal gait present Motor exam (neuro): 5/5 motor strength present throughout Sensory Exam: normal sensation Coordination: [id number] test normal and Normal rapid alternating movements of the distal upper extremity present (Neuro) Other: Deep tendon reflexes were 1 to 2/4 without any asymmetry. Objective Data Vital Signs Vital Signs: Vital Signs - 24 hr 06/07/23 14:00 06/07/23 12:00 06/07/23 16:00 Temperature 36.5 C Pulse Rate 74 79 100 Respiratory Rate 18 Blood Pressure 112/78 Pulse Oximetry 100 Oxygen Delivery 06/07/23 20:15 06/07/23 21:43 06/07/23 20:02 Temperature 36.4 C Pulse Rate 96 95 Respiratory Rate 14 Blood Pressure 108/45 L Pulse Oximetry 100 Oxygen Delive
[2023-06-08 13:11] LABS: Toxoplasma Gondii DNA PCR CSF Not Detected
--- NOTE | 2023-06-08 14:12 | PM.DS ---
DS: Admitting Diagnosis Discharge Date 06/08/23 Admitting Diagnosis Witnessed seizure DS: Discharge Diagnosis Discharge Diagnosis (1) Seizure-like activity: Code(s): R56.9 - Unspecified convulsions Status: Acute Assessment and Plan: x (2) Brain lesion: Code(s): G93.9 - Disorder of brain, unspecified Status: Acute (3) Palpitations: Code(s): R00.2 - Palpitations Status: Acute (4) Suspected sleep apnea: Code(s): R29.818 - Other symptoms and signs involving the nervous system Status: Acute (5) Abdominal pain: Code(s): R10.9 - Unspecified abdominal pain Status: Acute DS: Summary Hospital Course Reason for hospitalization: 38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 Please see H&P for details. Hospital Course: The patient presented to the emergency department for evaluation after a seizure. Vital signs were normal. Labs were unrevealing. Serum HCG was negative. CT head showed no acute findings. Brain MRI showed 3 enhancing lesions with a differential diagnosis to include malignancy, infection, multiple sclerosis, or infarct. Neurology and Oncology consulted. EKG showing sinus rhythm with incomplete Rt BBB. Echo was normal except trivial TR and pulmonic regurgitation. Septum was intact by agitated saline. Patient was started on Keppra. Her son is diagnosed with glioblastoma multiforme. The family had recently returned from [place]. Metastatic workup was started. CTA ch/abd/pelvis showed no significant abnormalities. EEG done on 06/03/23 normal. She had a LP performed with an elevated opening pressure of [id number]. She was started on broad spectrum abx and anti-viral treatment. CSF was clear with 13RBC, 21WBC with 96% lymphocytes. Total Protein 72, Glucose 54. CSF VDRL nonreactive. CSF HSV, CSF Toxo and CSF VZV not detected. Cryptococcus Ag not detected. Fungal smear negative and culture no growth to date. Moderate WBC but no organisms noted. bacterial culture no growth. Pathology showing mature lymphocytes with rare neutrophils. Antibiotics and anti-viral treatment stopped. CTA head/neck showing no significant intracranial or neck arterial stenosis. She did have extensive dental disease. MR of cervical spine showing ill-defined lesions of increased T2-weighted signal intensity in the spinal cord with some areas of contrast enhancement. MR of the thoracic spine also showing spinal cord lesions. MRI of the lumbar spine showed no acute process. Please see report for specific levels. She has been having discharge from her breasts. Mammogram ordered but unable to be obtained while hospitalized. Apnea link performed in the hospital stay with score of AHI 13.7 and RI 17.2. She will need sleep study as an outpatient. Plan for patient to discharge today. She will need follow-up with Oncology to obtain a PET scan and mammogram. She should also follow-up with her primary care doctor about having a sleep study. Patient will also need to follow up with Neurology for her new onset seizures and brain lesions as well. She overall did well and was able be discharged home on 06/08/2023. Status at Discharge Cognitive/behavioral status at discharge: stable Time Spent with Patient Time attestation: Total time spent providing and/or coordinating discharge services: 40 minutes Time spent: Greater than 30 minutes Exam Narrative: AF 97.3 90/68 85 14 100% ra Gen - NARD Chest - CTA bilaterally, nml RR CV - RRR S1/S2 Abd - Soft, NT/ND, Positive BS Ext - No pedal edema Neuro - Alert and appropriate. Walking in the room unassisted Psych - Nml mood and affect Skin - Warm and dry DS: Data Data Completed and Pending Completed studies during hospitalization: Pending at discharge 06/03/23 12:32 Cytology [PTH] Routine Pending studies at discharge: Pending at discharge 06/03/23 13:16 Surgical [PTH] Routin
[2023-06-09 04:29] LABS: IgG Index, CSF 1.99 (<0.70); IgG, CSF 18.8 mg/dL (0.8-7.7); Immunoglobulin G, Serum 1010 mg/dL (600-1640); Myelin Basic Protein, CSF <2.0 mcg/L (<=4.0); Oligoclonal Bands (IgG), CSF Present (Absent)
[2023-06-09 12:32] LABS: Soluble Transferrin Receptor 1.08 mg/L (0.76-1.76)
[2023-06-09 17:40] LABS: Angiotensi Converting Enzy CSF 6 U/L (<=15)
[2023-06-10 08:38] LABS: Reference Lab Test Result Not Detected
[2023-06-13 15:05] LABS: CSFMOG Ab with Reflex to Titer Negative
[2023-06-23 15:22] LABS: CSF Toxoplasma Source CSF
--- NOTE | 2023-07-12 08:31 | PC.NURSE ---
MS panel results sent to Dr. Dorsey. Dr. Salazar aware of findings.
== END 2023-06-08 15:00 | disposition home or self-care (01) | DRG 58 ==
LOC: ANHED 14:14 → ANH3MEDSUR 16:58
PROVIDERS: Nurse Practitioner Family; Physician Assistant; Student in an Organized Health Care Education/Training Program; Admitting Provider Family Medicine; Emergency Provider Student in an Organized Health Care Education/Training Program; Visit Provider Internal Medicine
DX: G93.9 Disorder of brain, unspecified (principal); R56.9 Unspecified convulsions; G95.9 Disease of spinal cord, unspecified; N64.52 Nipple discharge; R90.89 Other abnormal findings on diagnostic imaging of central nervous system; R00.2 Palpitations; R10.9 Unspecified abdominal pain; F12.90 Cannabis use, unspecified, uncomplicated
CPT/HCPCS: 36415; 36569; 62328; 70450; 70496; 70498; 70553; 71045; 71260; 72156; 72157; 72158; 74177; 80053; 80061; 80202; 82040; 82042; 82164; 82607; 82728; 82746; 82784; 82945; 83036; 83540; 83550; 83735; 83873; 83916; 83921; 84157; 84238; 84484; 84703; 85025; 85027; 85610; 85652; 85730; 86052; 86140; 86362; 86403; 86592; 86617; 87070; 87102; 87205; 87206; 87529; 87798; 87799; 88108; 89051; 93005; 93306; 95816; 96374; 96375; 99285; A9270; A9577; C1751; G0378; G0379; J0133; J0696; J1953; J2060; J2270; J2405; J3370; J7030; J7060; Q9967